=== PATIENT | female | born 1960 | race African-American/Black ===

== ENCOUNTER 2019-04-17 06:20 | Inpatient (IN) ==
--- NOTE | 2019-04-17 08:08 | Diag Imaging Result Doc PS360 ---
EXAM: KUB ABDOMEN HISTORY: sbo TECHNIQUE: Single view COMPARISON: 05/10/2017 FINDINGS: There are surgical clips in the right upper quadrant. Large screw in the pelvis. These are unchanged. There are air distended loops of small bowel in the left abdomen. No organomegaly. IMPRESSION: Ileus or partial obstruction Electronically signed by Praneeth Palmer 04/17/2019 8:06 AM
[2019-04-17] MEDS: NS 1,000 ML IV SCH ×3 (08:33→21:34)
[2019-04-17] MEDS: ZOFRAN IV PRN ×3 (08:33→22:21)
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
[2019-04-17 09:17] LABS: BASO# 0.02 X1000 (0.0-0.2); BASO% 0.2 % (0.0-0.8); EOS# 0.02 X1000 (0.0-0.7); EOS% 0.2 % (0.0-10.0); HEMATOCRIT 38.4 % (37.0-47.0); HEMOGLOBIN 12.5 g/dL (12.0-16.0); LYMPH# 1.61 X1000 (1.2-3.4); LYMPH% 19.5 % (20.5-51.1); MCH 31.1 PG (27-31); MCHC 32.6 g/dL (33-37); MCV 95.5 FL (81-99); MONO# 0.35 X1000 (0.11-0.59); MONO% 4.2 % (1.7-9.3); MPV 9.9 FL (7.4-10.4); NEUT# 6.25 X1000 (1.4-6.5); NEUT% 75.9 % (42.2-75.2); PLT 215 X1000 (130-400); RBC 4.02 XMIL (4.2-5.4); RDW 15.3 % (11.5-14.5); WBC 8.25 X1000 (4.8-10.8)
[2019-04-17 09:38] LABS: INR 1.63; PROTIME 19.7 Seconds (11.0-16.0)
[2019-04-17 09:39] LABS: PTT 33.3 Seconds (22.3-41.8)
[2019-04-17 10:00] LABS: FREE T4 1.18 ng/dL (0.93-1.70); TSH 0.34 uIUmL (0.27-4.20)
[2019-04-17 10:06] LABS: AGAP 6; ALBUMIN 3.5 g/dL (3.5-5.0); ALKALINE PHOSPHATASE 88 U/L (32-104); BUN 11 mg/dL (8-22); CALCIUM 9.1 mg/dL (8.8-10.2); CHLORIDE 103 mmol/L (98-107); COSMO 281; CREATININE 0.9 mg/dL (0.5-0.9); ESTIMATED GFR > 60; GLUCOSE 100 mg/dL (70-104); GOT 15 U/L (10-30); GPT 6 U/L (10-36); MAGNESIUM 1.8 mg/dL (1.5-2.7); POTASSIUM 4.2 mmol/L (3.5-5.1); SODIUM 141 mmol/L (136-145); TCO2 32 mmol/L (25-35); TOTAL BILIRUBIN 0.57 mg/dL (0.20-1.00); TOTAL PROTEIN 6.9 g/dL (6.3-8.3)
[2019-04-17] MEDS: MORPHINE IV PRN ×4 (10:56→21:34)
[2019-04-17] MEDS: LOVENOX SUBQ SCH ×2 (10:56→21:34)
--- NOTE | 2019-04-17 11:55 | GENERAL SURGERY CONSULTATION ---
DATE: 04/17/2019 SURGEON CONSULTED: Dr. Felix Turpin. REQUESTING PHYSICIAN: Dr. Marks. REASON FOR CONSULTATION: Small-bowel obstruction. HISTORY OF PRESENT ILLNESS: This is a 59-year-old female who presented to the [facility] last night with acute onset of severe shooting [id number] abdominal pain that began last night at 10:30. It was associated with several episodes of nausea and vomiting. It was rated 10/10 at its worst. It was worsened with movement or laughing, but has been lessened some with pain medicine in the hospital. It is now a 6/10. She also reported subjective fever. Her last bowel movement was yesterday and was normal. She has not been struggling with constipation or diarrhea recently. She has had no prior episodes like this. PAST MEDICAL HISTORY: 1. Ischemic colitis requiring left colectomy with colostomy in 2017. 2. History of stroke without any residual neurologic deficits. 3. Coronary artery disease, status post triple-vessel coronary bypass, I believe in 2014 or 2013. 4. Anxiety. 5. Depression. 6. Hypertension. 7. COPD. 8. Nicotine dependence. 9. Chronic left hip pain. 10. Right calf DVT diagnosed last year. PAST SURGICAL HISTORY: Triple-vessel bypass surgery, cholecystectomy, left hemicolectomy with colostomy, colostomy takedown, hysterectomy. FAMILY HISTORY: Coronary artery disease. SOCIAL HISTORY: She smokes a half a pack per day. No illicit drug use or alcohol use. ALLERGIES: No known drug allergies. HOME MEDICATIONS: Lyrica, Klonopin, Ambien, [place], Xarelto, Lopressor. REVIEW OF SYSTEMS: Ten systems were reviewed and negative, except as noted above. PHYSICAL EXAMINATION: Vital Signs: Temperature 99.2 degrees, pulse 62, respirations 19, blood pressure 172/79, O2 saturation 99%. General: Well-developed, well-nourished female in no distress, who looks her stated age. HEENT: Normocephalic, atraumatic. Extraocular muscles intact. Pupils equal, round, reactive to light. Sclerae anicteric. Moist mucous membranes. Hearing grossly normal. No oral lesions. Neck: Supple. No thyromegaly. CV: Regular rate and rhythm. Respiratory: Bilateral equal breath sounds. No work of breathing. Gastrointestinal: Soft, nondistended. No organomegaly or mass. She is moderately tender in the mid abdomen without rebound or guarding. She does have a periumbilical midline small hernia that is reduced. Well- healed midline incision. Extremities: No clubbing, cyanosis, or edema. Musculoskeletal: Moves all extremities equally and well. LABORATORY DATA: White blood cell count 8, hemoglobin 12, hematocrit 38, platelet count 215,000. INR 1.6. Complete metabolic profile reviewed and unremarkable. IMAGING: Abdominal x-ray this morning shows air distended loops of small bowel in the left abdomen. No free air. She apparently had a CT scan done at [facility], but I do not have those results at the moment. ASSESSMENT AND PLAN: A 59-year-old female with abdominal pain, nausea, and vomiting, likely due to partial-small bowel obstruction. She does not appear to need a nasogastric tube at this time. We will keep her nothing by mouth, except for medicine. Administer intravenous fluids for hydration, and get a small-bowel follow-through x-ray series today. cc: Felix Turpin MD
[2019-04-17 18:10] LABS: URINE SOURCE CLEAN CATCH
[2019-04-17 18:17] LABS: BILIRUBIN URINE NEGATIVE (NEGATIVE); BLOOD URINE NEGATIVE (NEGATIVE); COLOR YELLOW; GLUCOSE URINE NEGATIVE (NEGATIVE); KETONE URINE 10 mg/dL (NEGATIVE); LEUKOCYTES URINE NEGATIVE (NEGATIVE); NITRITE URINE NEGATIVE (NEGATIVE); PROTEIN URINE TRACE mg/dL (NEGATIVE); SP GRAVITY URINE 1.019; TURBIDITY URINE CLEAR (CLEAR); UROBILINOGEN URINE NORMAL (NORMAL)
[2019-04-17 18:18] LABS: UR EPITHELIAL CELLS <10 /HPF (<10); URINE BACTERIA NEGATIVE /HPF; URINE RBC <10 /HPF (<10); URINE WBC <10 /HPF (<10)
--- NOTE | 2019-04-17 20:16 | Diag Imaging Result Doc PS360 ---
EXAM: SMALL BOWEL SERIES ONLY 04/17/2019 HISTORY: partial sbo TECHNIQUE: Small bowel study COMMENT: There is some gas in the colon demonstrated particularly on the right side. There is delayed intestinal transit time and dilatation of the proximal small bowel. The small bowel mucosal folds do not appear to be thickened. There is still no barium in the colon by 8 1/2 hours. Additional delayed images should be obtained. IMPRESSION: Study is incomplete at 8 1/2 hours. Electronically signed by Blake Forde 04/17/2019 8:13 PM
[2019-04-18] MEDS: MORPHINE IV PRN ×8 (00:54→22:58)
[2019-04-18 07:29] LABS: BASO# 0.02 X1000 (0.0-0.2); BASO% 0.2 % (0.0-0.8); EOS# 0.05 X1000 (0.0-0.7); EOS% 0.6 % (0.0-10.0); HEMATOCRIT 39.1 % (37.0-47.0); HEMOGLOBIN 12.6 g/dL (12.0-16.0); LYMPH# 1.86 X1000 (1.2-3.4); LYMPH% 22.2 % (20.5-51.1); MCH 30.9 PG (27-31); MCHC 32.2 g/dL (33-37); MCV 95.8 FL (81-99); MONO# 0.65 X1000 (0.11-0.59); MONO% 7.8 % (1.7-9.3); MPV 10.3 FL (7.4-10.4); NEUT# 5.78 X1000 (1.4-6.5); NEUT% 69.2 % (42.2-75.2); PLT 214 X1000 (130-400); RBC 4.08 XMIL (4.2-5.4); WBC 8.36 X1000 (4.8-10.8)
[2019-04-18 08:26] LABS: AGAP 19; ALB/GLOB RATIO 1.1; ALBUMIN 3.5 g/dL (3.5-5.0); ALKALINE PHOSPHATASE 84 U/L (32-104); BUN 18 mg/dL (8-22); CALCIUM 9.2 mg/dL (8.8-10.2); CHLORIDE 102 mmol/L (98-107); COSMO 277; CREATININE 0.9 mg/dL (0.5-0.9); ESTIMATED GFR > 60; GLUCOSE 56 mg/dL (70-104); GOT 15 U/L (10-30); GPT 5 U/L (10-36); POTASSIUM 3.7 mmol/L (3.5-5.1); SODIUM 139 mmol/L (136-145); TCO2 18 mmol/L (25-35); TOTAL BILIRUBIN 0.74 mg/dL (0.20-1.00); TOTAL PROTEIN 6.8 g/dL (6.3-8.3)
[2019-04-18] MEDS: NS 1,000 ML IV SCH ×3 (09:31→15:36)
--- NOTE | 2019-04-18 10:08 | Diag Imaging Result Doc PS360 ---
EXAM: CHEST-PORTABLE 04/18/2019 HISTORY: confirm NG tube TECHNIQUE: AP portable upright at 0950 COMMENT: There is an NG tube with its tip in the fundus of the stomach. IMPRESSION: NG tube in the stomach. Electronically signed by Blake Forde 04/18/2019 10:06 AM
[2019-04-18] MEDS: LOVENOX SUBQ SCH (11:24)
--- NOTE | 2019-04-18 13:00 | Diag Imaging Result Doc PS360 ---
EXAM: ABDOMEN FLAT/UPRIGHT 04/18/2019 HISTORY: sbo follow up TECHNIQUE: Flat and upright abdomen COMMENT: There is an NG tube in the stomach. There is retained barium which has undergone some degree of flocculation throughout the proximal small bowel which is markedly distended. The degree of dilatation has worsened since the previous examination at 0837. There is still no significant progression of the barium column. IMPRESSION: Small bowel obstruction. Electronically signed by Blake Forde 04/18/2019 12:57 PM
--- NOTE | 2019-04-18 14:11 | GENERAL SURGERY PROGRESS NOTE ---
DATE: 04/18/2019 SUBJECTIVE: The patient complains of ongoing upper abdominal pain with some episodes of nausea and vomiting. She denies flatus or bowel movement. OBJECTIVE: She is afebrile. Vital signs are stable.General: She is awake, alert, oriented x3. No acute distress. CV: Regular rate and rhythm. Respiratory: Bilateral equal breath sounds. No work of breathing. Gastrointestinal: Soft, nondistended, no organomegaly. No mass. She does have a periumbilical midline hernia, but it remains reduced. She remains tender in the mid upper abdomen but without rebound or guarding. LABORATORY: CBC reviewed and unremarkable. Metabolic profile is pending. IMAGING: Her small bowel follow-through images were reviewed. They do show slow transit through the small bowel after 8 hours without entry into the colon. There is dilated proximal small bowel. ASSESSMENT AND PLAN: A 59-year-old female with ongoing abdominal pain, nausea, vomiting, and imaging suggesting small bowel obstruction. We will order an NG tube to low wall suction today and repeat some imaging. If she fails to improve over the next 24 hours, we will proceed to the operating room for exploratory laparotomy. cc: Felix Turpin MD
[2019-04-18] MEDS ORDERED: DIPRIVAN 1% ONE (15:19)
[2019-04-18] MEDS ORDERED: XYLOCAINE-MPF 2% ONE (15:19)
[2019-04-18] MEDS ORDERED: NORCURON ONE (15:21)
[2019-04-18] MEDS ORDERED: STERILE WATER INJ. ONE (15:21)
[2019-04-18] MEDS ORDERED: VERSED ONE (15:21)
[2019-04-18] MEDS ORDERED: KEFZOL 1 GM/D5W 1 GM/50 ML IVPB IV ONE (15:30)
[2019-04-18] MEDS ORDERED: EXPAREL 1.3% ONE (15:32)
[2019-04-18] MEDS ORDERED: MARCAINE 0.25% PF ONE (15:32)
[2019-04-18] MEDS ORDERED: KEFZOL 1 GM/D5W 1 GM/50 ML IVPB ONE (15:46)
[2019-04-18] MEDS ORDERED: FENTANYL ONE (16:18)
[2019-04-18] MEDS ORDERED: APRESOLINE ONE (16:27)
[2019-04-18] MEDS ORDERED: ZOFRAN ONE (16:41)
[2019-04-18] MEDS ORDERED: DECADRON ONE (16:41)
[2019-04-18] MEDS ORDERED: BENADRYL ONE (17:02)
[2019-04-18] MEDS ORDERED: ROBINUL ONE ×2 (17:02→17:03)
[2019-04-18] MEDS ORDERED: OFIRMEV 1000 MG/ISOTONIC SOLN 1,000 MG/100 ML BOTTLE ONE (17:03)
[2019-04-18] MEDS ORDERED: NEOSTIGMINE ONE (17:04)
[2019-04-18] MEDS ORDERED: NS 1,000 ML ONE (17:30)
[2019-04-18] MEDS: DILAUDID ONE ×2 (17:36→17:39)
[2019-04-18 17:52] LABS: URINE SOURCE CATH
[2019-04-18 17:55] LABS: BILIRUBIN URINE NEGATIVE (NEGATIVE); BLOOD URINE NEGATIVE (NEGATIVE); COLOR YELLOW; GLUCOSE URINE NEGATIVE (NEGATIVE); KETONE URINE 40 mg/dL (NEGATIVE); LEUKOCYTES URINE NEGATIVE (NEGATIVE); NITRITE URINE NEGATIVE (NEGATIVE); PH URINE 6.5; PROTEIN URINE TRACE mg/dL (NEGATIVE); SP GRAVITY URINE 1.015; TURBIDITY URINE CLEAR (CLEAR); UROBILINOGEN URINE NORMAL (NORMAL)
[2019-04-18 17:57] LABS: UR EPITHELIAL CELLS <10 /HPF (<10); URINE BACTERIA NEGATIVE /HPF; URINE RBC <10 /HPF (<10); URINE WBC <10 /HPF (<10)
[2019-04-18] MEDS: ZOFRAN IV PRN (19:09)
[2019-04-18] MEDS: VENTOLIN HFA INH PRN (20:07)
[2019-04-18] MEDS: PERIDEX MT SCH (20:40)
[2019-04-18] MEDS: PROTONIX IV SCH (20:40)
[2019-04-18] MEDS: SODIUM CHLORIDE 0.9% INJ SCH (20:40)
[2019-04-18] MEDS ORDERED: PERIDEX MT SCH (21:00)
--- NOTE | 2019-04-18 22:29 | GENERAL SURGERY PROGRESS NOTE ---
DATE: 04/18/2019 SUBJECTIVE: The patient has not had much improvement today. She still has not passed gas or had a bowel movement. OBJECTIVE: She is afebrile. Vital signs are stable.General: She is awake, alert, oriented x3. No acute distress. Gastrointestinal: Soft, tender as before. IMAGING: Her x-ray today shows no progression of contrast to the colon and increasing small bowel distention. ASSESSMENT AND PLAN: A 59-year-old female with small-bowel obstruction. It is not resolving despite conservative measures. We are planning exploratory laparotomy this evening. I discussed the risks and benefits with her including bleeding, infection, incisional hernia, injury to the bowel, possible need for resection, and other imponderables. She understands and agrees to proceed. cc: Felix Turpin MD
--- NOTE | 2019-04-18 22:32 | PROGRESS NOTE ---
DATE: 04/18/2019 SUBJECTIVE: The patient seen postop. She has an NG in place. OBJECTIVE: Vital Signs: Blood pressure 130/77, heart rate 99, respiratory rate 16, temperature 97.8 degrees, 94% on room air. Cardiovascular: Regular rate and rhythm. Pulmonary: Bilateral breath sounds, clear to auscultation. Abdomen: Soft, nontender, nondistended. Bowel sounds are positive. Extremity: No clubbing or cyanosis. Lymphatic exam: No peripheral edema. Neurological: Nonfocal. LABORATORY DATA: White count 8, hemoglobin and hematocrit 12 and 39, platelets 214,000. Basic was normal. PROBLEM LIST: Small-bowel obstruction, but I think she is status post lysis of adhesions and exploratory laparotomy. I do not have her operative report yet. We will continue NPO and hydration and follow closely. Monitor her labs. She is on anticoagulation, but I do not know why. She has had CAD, CVA. She is on Xarelto. I suspect this is for atrial fibrillation, but I am not entirely sure. Her last admission with discharge, she had ischemic colitis. Maybe they were anticoagulating her there. Will at least put her on Lovenox until we can sort out why she is being anticoagulated, but I suspect it is probably for atrial fibrillation. Her regular doctors will have to sort that out a bit. cc: Noah Henry MD
[2019-04-19] MEDS: MORPHINE IV PRN ×11 (01:18→22:32)
[2019-04-19] MEDS: NS 1,000 ML IV SCH ×4 (03:26→17:54)
--- NOTE | 2019-04-19 04:14 | OPERATIVE NOTE ---
PROCEDURE DATE: 04/18/2019 PREOPERATIVE DIAGNOSIS: Small-bowel obstruction. POSTOPERATIVE DIAGNOSIS: Small-bowel obstruction. PROCEDURE: Exploratory laparotomy with lysis of adhesions. SURGEON: Felix Turpin MD. ANESTHESIA: General. ESTIMATED BLOOD LOSS: 50 mL. COMPLICATIONS: None apparent. SPECIMENS: None. FINDINGS: Extensive adhesions of the small-bowel causing obstruction. OPERATIVE NOTE: The patient was brought to the operating room and placed supine on the table. General anesthesia was induced. She was prepped and draped in usual sterile fashion. A midline incision was made with a knife and carried down through the subcutaneous fat sharply to the fascia. The fascia was then opened sharply and we entered the peritoneal cavity safely, extended the peritoneal and fascial incision with cautery, also using Metzenbaum scissors to lyse adhesions of small-bowel to the anterior abdominal wall. I then proceeded to find the ileocecal valve and, working from distal to proximal, I began mobilizing the small-bowel. There were extensive adhesions between bowel loops as well as to the lateral abdominal sidewall and the pelvis. Carefully, all the adhesions were lysed. There was an obvious transition point in the mid small- bowel that was resolved after adhesiolysis. Along the way, there were there were 2 small serosal tears, but not full thickness tears. These were repaired with 3-0 silk seromuscular suture. When I got to the ligament of Treitz, I then ran the bowel back from proximal to distal. There were no further obstructing lesions. The bowel appeared to be intact. The NG tube was felt to be in the stomach. We milked some of the fluid in the small-bowel back up in to the stomach. I then returned the bowel to its anatomic position and closed the peritoneum with a running #1 Vicryl and the fascia with a running #1 looped Maxon suture. The skin was closed with skin clips. There were no apparent complications. cc: Felix Turpin MD
[2019-04-19] MEDS: LOVENOX SUBQ SCH (05:45)
[2019-04-19 07:06] LABS: BASO# 0.01 X1000 (0.0-0.2); BASO% 0.1 % (0.0-0.8); HEMATOCRIT 35.2 % (37.0-47.0); HEMOGLOBIN 11.3 g/dL (12.0-16.0); IMM GRAN# 0.02 X1000 (0.0-0.04); IMM GRAN% 0.2 % (0.0-0.5); LYMPH# 1.35 X1000 (1.2-3.4); LYMPH% 12.9 % (20.5-51.1); MCH 30.3 PG (27-31); MCHC 32.1 g/dL (33-37); MCV 94.4 FL (81-99); MONO# 0.95 X1000 (0.11-0.59); MONO% 9.1 % (1.7-9.3); NEUT# 8.12 X1000 (1.4-6.5); NEUT% 77.7 % (42.2-75.2); PLT 202 X1000 (130-400); RBC 3.73 XMIL (4.2-5.4); RDW 14.8 % (11.5-14.5); WBC 10.45 X1000 (4.8-10.8)
[2019-04-19] MEDS: PERIDEX MT SCH ×3 (07:41→20:04)
[2019-04-19 07:42] LABS: AGAP 12; BUN 17 mg/dL (8-22); CHLORIDE 104 mmol/L (98-107); COSMO 272; CREATININE 0.7 mg/dL (0.5-0.9); ESTIMATED GFR > 60; GLUCOSE 96 mg/dL (70-104); MAGNESIUM 1.5 mg/dL (1.5-2.7); POTASSIUM 3.9 mmol/L (3.5-5.1); SODIUM 135 mmol/L (136-145); TCO2 19 mmol/L (25-35)
[2019-04-19] MEDS: VENTOLIN HFA INH PRN ×2 (08:55→19:32)
[2019-04-19] MEDS: ZOFRAN IV PRN (16:22)
--- NOTE | 2019-04-19 19:04 | PROGRESS NOTE ---
DATE: 04/19/2019 SUBJECTIVE: The patient has no major complaints. She still has her NG in place. She is still fairly uncomfortable from her recent exploratory laparotomy. OBJECTIVE: Blood pressure is 160/79, heart rate of 92, respiratory rate of 19, temperature 98.3 degrees, 100% on room air.Cardiovascular: Regular rate and rhythm. Pulmonary: Bilateral breath sounds, clear to auscultation. GI was soft, nontender, nondistended. Bowel sounds were not positive. LABORATORY DATA: White count 10, hemoglobin and hematocrit 11 and 35, platelets of 202,000. Basic was normal. ASSESSMENT AND PLAN: 1. Small-bowel obstruction. We will continue to follow. She is status post lysis of adhesions. She is NPO. We are going to continue intravenous fluids and follow. 2. She is on deep venous thrombosis prophylaxis, proton pump inhibitor, and we will continue to monitor. Appreciate this with Dr. Turpin in following. cc: Noah Henry MD
--- NOTE | 2019-04-19 19:19 | GENERAL SURGERY PROGRESS NOTE ---
DATE: 04/19/2019 SUBJECTIVE: The patient is doing okay overnight. No acute events. OBJECTIVE: Vital signs: T-max 99.8 degrees, pulse 93, respirations 19, blood pressure 148/85, O2 saturation 94%. Urine output 1375 yesterday. NG tube output 300. General: She is awake and alert in no acute distress. Gastrointestinal: Soft, nondistended hypoactive bowel sounds. Incisional dressing was clean and dry. LABORATORY DATA: White blood cell count 10, hemoglobin 11.3, hematocrit 35. Electrolytes reviewed and unremarkable. ASSESSMENT AND PLAN: A 59-year-old female postoperative day 1 from extensive lysis of adhesions for small bowel obstruction. We are awaiting return of bowel function. She will remain n.p.o. with the NG tube for now. We will start mobilizing her to the side of the bed or the chair as tolerated. cc: Felix Turpin MD
[2019-04-19] MEDS: PROTONIX IV SCH (20:04)
[2019-04-19] MEDS: SODIUM CHLORIDE 0.9% INJ SCH (20:04)
[2019-04-20] MEDS: MORPHINE IV PRN ×10 (00:39→21:37)
[2019-04-20] MEDS: NS 1,000 ML IV SCH (00:39)
[2019-04-20] MEDS: LOVENOX SUBQ SCH (05:50)
[2019-04-20 06:51] LABS: BASO# 0.01 X1000 (0.0-0.2); BASO% 0.1 % (0.0-0.8); EOS# 0.06 X1000 (0.0-0.7); EOS% 0.6 % (0.0-10.0); HEMATOCRIT 32.1 % (37.0-47.0); HEMOGLOBIN 10.4 g/dL (12.0-16.0); LYMPH# 1.04 X1000 (1.2-3.4); LYMPH% 10.5 % (20.5-51.1); MCH 30.7 PG (27-31); MCHC 32.4 g/dL (33-37); MCV 94.7 FL (81-99); MONO# 0.94 X1000 (0.11-0.59); MONO% 9.5 % (1.7-9.3); MPV 9.8 FL (7.4-10.4); NEUT# 7.83 X1000 (1.4-6.5); NEUT% 79.3 % (42.2-75.2); PLT 187 X1000 (130-400); RBC 3.39 XMIL (4.2-5.4); RDW 14.7 % (11.5-14.5); WBC 9.88 X1000 (4.8-10.8)
[2019-04-20 07:14] LABS: AGAP 17; BUN 11 mg/dL (8-22); CALCIUM 8.1 mg/dL (8.8-10.2); CHLORIDE 100 mmol/L (98-107); COSMO 264; CREATININE 0.8 mg/dL (0.5-0.9); ESTIMATED GFR > 60; GLUCOSE 60 mg/dL (70-104); MAGNESIUM 1.7 mg/dL (1.5-2.7); POTASSIUM 3.7 mmol/L (3.5-5.1); SODIUM 133 mmol/L (136-145); TCO2 16 mmol/L (25-35)
[2019-04-20] MEDS ORDERED: BLISTEX MEDICATED BERRY LIP BALM TOP PRN (07:25)
[2019-04-20] MEDS: PERIDEX MT SCH ×3 (07:52→21:05)
--- NOTE | 2019-04-20 07:58 | Diag Imaging Result Doc PS360 ---
EXAM: CHEST-PORTABLE HISTORY: fever post op TECHNIQUE: Single view COMPARISON: 04/18/2019 FINDINGS: Nasogastric tube is unchanged. The heart is mildly prominent. Sternal wires are present. There are small pleural effusions with basilar atelectasis. The could be underlying infiltrates as well. IMPRESSION: Interval worsening Electronically signed by Praneeth Palmer 04/20/2019 7:55 AM
[2019-04-20] MEDS: VENTOLIN HFA INH PRN (08:25)
[2019-04-20] MEDS: D5 1/2 NS + KCL 20 MEQ 1,000 ML IV SCH ×2 (12:18→22:55)
--- NOTE | 2019-04-20 14:36 | GENERAL SURGERY PROGRESS NOTE ---
DATE: 04/20/2019 SUBJECTIVE: The patient is feeling better. She is not having severe pain. She has soreness. She denies chest pain. She did report some mild shortness of breath. No nausea or vomiting, no flatus yet. OBJECTIVE: Vital Signs: T-max 101.1 degrees. Current temperature 98.5 degrees. Pulse 84, respirations 17, blood pressure 155/80, O2 saturation 93%. NG tube output only 200 mL. Urine output 1500 mL. General: She is awake, alert, and oriented x3. No acute distress. Respiratory: Shallow, mildly tachypneic breathing. No severe rales or wheezing. No respiratory distress. CV: Regular rate and rhythm. Gastrointestinal: Soft, nondistended. Appropriately tender. Incisional dressing is clean and dry. She does have bowel sounds. LABORATORY: CBC and metabolic profile reviewed and unremarkable. IMAGING: Chest x-ray today does show some basilar atelectasis and small effusions. ASSESSMENT AND PLAN: A 59-year-old female status post extensive lysis of adhesions for small bowel obstruction. She may be developing some significant atelectasis and effusion. We will discontinue the nasogastric tube and the Hayes catheter. We will plan to get her up out of bed and ambulating and working with her incentive spirometer. I will also give her a dose of Lasix. We will keep her nothing by mouth, except for ice chips and sips of water for right now. cc: Felix Turpin MD
--- NOTE | 2019-04-20 17:01 | Diag Imaging Result Doc PS360 ---
EXAM: CT THORAX W/CONTRAST INDICATION: pna, pleural effusion TECHNIQUE: This exam was performed using automated exposure control, adjustment of mA or kV according to patient size, and/or use of iterative reconstruction technique. COMPARISON: 04/24/2017 FINDINGS: There are a few small blebs at the lung apices. There are airspace consolidations involving both lower lobes indicating pneumonia but there is also a significant component of atelectasis. Consider aspiration. There are small effusions at both lung bases. There is no pneumothorax. There is stable cardiomegaly. There are shotty mediastinal lymph nodes that are probably reactive. There are CABG changes. Limited views of the upper abdomen reveals several simple hepatic cysts as well as biliary dilatation that can also be seen on the previous study. IMPRESSION: 1.Bilateral lower lobe consolidation suggesting pneumonia with a significant component of atelectasis. Consider aspiration pneumonia. 2.Very small bilateral effusions. 3.Incidental biliary dilatation that is similar to the previous study. 4.Other incidental/nonacute findings detailed above. Electronically signed by Newton Juan 04/20/2019 4:59 PM
--- NOTE | 2019-04-20 20:30 | PROGRESS NOTE ---
DATE: 04/20/2019 SUBJECTIVE: Patient reports feeling fine. NG tube has been removed. Mild abdominal pain most likely related to her recent exploratory laparotomy, but no other complaints noted. OBJECTIVE: Vital Signs: Temperature 97.3 degrees, heart rate 86, respiratory rate 17, blood pressure 163/89, O2 saturation 93% on room air. General: This is a 59-year-old, -[place]is[place] female, lying in bed in no acute distress. Cardiovascular: S1, S2 heard. No murmurs, gallops, or rubs. Regular rate and rhythm. Respiratory: Clear bilaterally to auscultation. No work of breathing or using accessory muscles. Abdomen: Soft, nontender to palpation, nondistended. Surgical incision dry and clean. Bowel sounds present. No organomegaly. Extremities: No clubbing, cyanosis, or edema. Peripheral pulses present in both legs. Neurological: Patient alert and oriented x3. Moves 4 extremities. LABORATORY DATA: Reviewed. ASSESSMENT AND PLAN: 1. Small bowel obstruction, status post extensive lysis of adhesions. General Surgery is following this patient. Nasogastric tube has been removed. She is not feeling nauseated. The patient requests some clear liquids. Currently, on ice chips and sips of water. At this point, we will leave the decision to change diet to General Surgery. 2. Bilateral lower lobe pneumonia, most likely related to aspiration. At this time, we are going to start broad-spectrum antibiotics with vancomycin and Zosyn, and we will continue to check CBC daily. 3. Disposition. We will continue to monitor this patient closely. cc: Rajiv Hall MD
[2019-04-20] MEDS: PROTONIX IV SCH (21:05)
[2019-04-21] MEDS: MORPHINE IV PRN ×8 (02:01→22:32)
[2019-04-21] MEDS: LOVENOX SUBQ SCH (05:40)
[2019-04-21 07:53] LABS: EOS# 0.16 X1000 (0.0-0.7); EOS% 2.3 % (0.0-10.0); HEMATOCRIT 30.7 % (37.0-47.0); HEMOGLOBIN 10.1 g/dL (12.0-16.0); LYMPH# 0.67 X1000 (1.2-3.4); LYMPH% 9.8 % (20.5-51.1); MCH 30.7 PG (27-31); MCHC 32.9 g/dL (33-37); MCV 93.3 FL (81-99); MONO# 0.71 X1000 (0.11-0.59); MONO% 10.4 % (1.7-9.3); MPV 10.1 FL (7.4-10.4); NEUT# 5.27 X1000 (1.4-6.5); NEUT% 77.5 % (42.2-75.2); PLT 186 X1000 (130-400); RBC 3.29 XMIL (4.2-5.4); RDW 14.2 % (11.5-14.5); WBC 6.81 X1000 (4.8-10.8)
[2019-04-21 08:20] LABS: AGAP 12; ALBUMIN 2.7 g/dL (3.5-5.0); BUN 7 mg/dL (8-22); CALCIUM 8.4 mg/dL (8.8-10.2); CHLORIDE 104 mmol/L (98-107); COSMO 272; CREATININE 0.7 mg/dL (0.5-0.9); ESTIMATED GFR > 60; GLUCOSE 133 mg/dL (70-104); POTASSIUM 3.8 mmol/L (3.5-5.1); SODIUM 136 mmol/L (136-145); TCO2 20 mmol/L (25-35)
[2019-04-21] MEDS: VENTOLIN HFA INH PRN (09:00)
--- NOTE | 2019-04-21 10:20 | Diag Imaging Result Doc PS360 ---
EXAM: ABDOMEN FLAT/UPRIGHT 04/21/2019 HISTORY: sbo s/p lysis of adhesions TECHNIQUE: Flat and upright abdomen COMMENT: There is contrast present in the distal small bowel and apparently in the cecum. The dilatation of the small bowel loops more proximally which was demonstrated on 04/18/2019 has apparently resolved. There are surgical skin clips in the midline. There is gas in the ascending colon. IMPRESSION: Resolution of small bowel obstruction. Electronically signed by Blake Forde 04/21/2019 10:17 AM
[2019-04-21] MEDS: PERIDEX MT SCH ×2 (11:24→20:25)
[2019-04-21] MEDS ORDERED: SODIUM PHOSPHATE 35 MMOL in NS 250 ML IV ONE (12:31)
[2019-04-21] MEDS: D5 1/2 NS + KCL 20 MEQ 1,000 ML IV SCH (14:08)
--- NOTE | 2019-04-21 19:01 | PROGRESS NOTE ---
DATE: 04/21/2019 SUBJECTIVE: Patient reports feeling fine. No abdominal pain. No nausea or vomiting. OBJECTIVE: Vital Signs: Temperature 98.4 degrees, heart rate 76, respiratory 16, blood pressure 137/77, O2 saturation 94% on room air. General: This is a 59-year-old, -Stateless female, lying in bed in no acute distress. Cardiovascular: S1, S2 heard. No murmurs, gallops, or rubs. Regular rate and rhythm. Respiratory: Clear bilaterally to auscultation. No work of breathing or using accessory muscles. Abdomen: Soft, nontender to palpation, nondistended. Surgical incision dry and clean. Bowel sounds present. No organomegaly. Extremities: No clubbing, cyanosis, or edema. Peripheral pulses present in both legs. Neurological: Alert and oriented x3. Moves 4 extremities. LABORATORY DATA: Reviewed. ASSESSMENT AND PLAN: 1. Small bowel obstruction, status post extensive lysis of adhesions. The x-ray from this morning showed resolution with this small bowel obstruction. The patient is not feeling nauseated anymore or having any abdominal pain. As per General Surgery's recommendations, we will start a clear liquid diet. We will continue to monitor this patient closely. 2. Bilateral lower lobe pneumonia, most likely related to aspiration. Patient has been started on vancomycin and Zosyn. Clinically, this patient is still having some cough. I think at this point, we will keep this patient over the weekend. We have consulted Physical Therapy and Occupational Therapy as well. I think if she continues to be fine, not requiring any oxygen supplementation, white cell count normal, and not spiking any fever, I think this patient can be discharged on Wednesday. 3. Disposition. We will continue to monitor this patient. cc: Rajiv Hall MD
[2019-04-21] MEDS: PROTONIX IV SCH (20:24)
[2019-04-21] MEDS: SODIUM CHLORIDE 0.9% INJ SCH (20:24)
--- NOTE | 2019-04-21 21:47 | GENERAL SURGERY PROGRESS NOTE ---
DATE: 04/21/2019 SUBJECTIVE: The patient complains of soreness. She denies nausea or vomiting. She did get out of bed yesterday. She has not passed flatus yet. OBJECTIVE: She is afebrile. Vital signs are stable.General: She is awake, alert, and oriented x3. No acute distress. Cardiovascular: Regular rate and rhythm. Respiratory: Bilateral breath sounds. No increased work of breathing. Gastrointestinal: Soft, nondistended, appropriately tender. Incisional dressing is clean and dry. She does have a few bowel sounds. IMAGING: Her abdominal x-ray today, shows resolution of small bowel obstruction. LABORATORY: CBC and metabolic profile reviewed and unremarkable. ASSESSMENT AND PLAN: A 59-year-old female status post extensive lysis of adhesions for small bowel obstruction. She is improving. She definitely has some atelectasis, possibly pneumonia. She is being covered with broad-spectrum antibiotics for the time being. We are encouraging ambulation and incentive spirometry. I will start her on a clear liquid diet, but will hold off advancing until she is definitely passing flatus. cc: Felix Turpin MD
[2019-04-22] MEDS: MORPHINE IV PRN ×8 (00:24→20:22)
[2019-04-22] MEDS: D5 1/2 NS + KCL 20 MEQ 1,000 ML IV SCH ×2 (01:53→13:35)
[2019-04-22] MEDS: LOVENOX SUBQ SCH (05:42)
[2019-04-22 07:36] LABS: EOS# 0.02 X1000 (0.0-0.7); EOS% 0.7 % (0.0-10.0); HEMATOCRIT 34.1 % (37.0-47.0); HEMOGLOBIN 11.3 g/dL (12.0-16.0); LYMPH# 0.48 X1000 (1.2-3.4); LYMPH% 17.7 % (20.5-51.1); MCH 30.9 PG (27-31); MCHC 33.1 g/dL (33-37); MCV 93.2 FL (81-99); MONO# 0.21 X1000 (0.11-0.59); MONO% 7.7 % (1.7-9.3); MPV 9.9 FL (7.4-10.4); NEUT% 73.9 % (42.2-75.2); PLT 229 X1000 (130-400); RBC 3.66 XMIL (4.2-5.4); RDW 14.2 % (11.5-14.5); WBC 2.71 X1000 (4.8-10.8)
[2019-04-22] MEDS: VENTOLIN HFA INH PRN (08:09)
[2019-04-22 08:22] LABS: AGAP 17; ALBUMIN 2.6 g/dL (3.5-5.0); BUN 6 mg/dL (8-22); CALCIUM 8.2 mg/dL (8.8-10.2); CHLORIDE 101 mmol/L (98-107); COSMO 267; CREATININE 0.7 mg/dL (0.5-0.9); ESTIMATED GFR > 60; GLUCOSE 122 mg/dL (70-104); PHOSPHORUS 2.5 mg/dL (2.7-4.5); POTASSIUM 3.2 mmol/L (3.5-5.1); SODIUM 134 mmol/L (136-145); TCO2 16 mmol/L (25-35)
[2019-04-22] MEDS: PERIDEX MT SCH ×2 (09:53→20:26)
[2019-04-22] MEDS ORDERED: KLOR-CON PO ONE (13:11)
[2019-04-22] MEDS ORDERED: SODIUM PHOSPHATE 35 MMOL in NS 250 ML IV ONE (14:30)
[2019-04-22] MEDS ORDERED: OFIRMEV 1000 MG/ISOTONIC SOLN 1,000 MG/100 ML BOTTLE IV ONE (20:07)
[2019-04-22] MEDS: PROTONIX IV SCH (20:24)
--- NOTE | 2019-04-23 00:11 | PROGRESS NOTE ---
DATE: 04/22/2019 SUBJECTIVE: The patient reports still having diarrhea, 6 this morning. No abdominal pain. She is afraid if she continues to eat she could have more diarrhea. OBJECTIVE: Vital Signs: Temperature 98.6 degrees, heart rate 106 respiratory 17, blood pressure 136/86, O2 saturation is 95% on 2 L nasal cannula. General: This is a 59-year-old female lying in bed in no acute distress. Cardiovascular: S1 and S2 heard. No murmurs, gallops or rubs. Regular rate and rhythm. Respiratory: Clear bilaterally to auscultation. No work of breathing or using of accessory muscles. Abdomen: Soft, a little bit distended. Nontender to palpation. Surgical incision dry and clean. Bowel sounds present. No organomegaly. Extremities: No clubbing, cyanosis, or edema. Peripheral pulses present in both legs. Neurological: The patient is alert and oriented x3. Moves all 4 extremities. LABORATORY DATA: Potassium is 3.2, with a normal renal function, phosphorus 2.5. ASSESSMENT AND PLAN: 1. Small bowel obstruction status post extensive lysis of adhesions. The patient reports feeling fine, x-ray from yesterday showed resolution of the small bowel obstruction. The patient started having diarrhea. We will check C difficile antigen and toxin, and the white cell count on the stool and stool culture considering that she has been on antibiotics. We will see what it shows. General surgery is following this patient. We will follow recommendations. 2. Bilateral lower lobe pneumonia. We will continue with vancomycin and Zosyn. 3. Physical deconditioning. Physical therapy and occupational therapy has been consulted. 4. Electrolyte imbalance. Potassium and phosphorus is low, so we are going to replete both. 5. Disposition. We will continue to monitor this patient closely. cc: Rajiv Hall MD
[2019-04-23] MEDS: D5 1/2 NS + KCL 20 MEQ 1,000 ML IV SCH ×3 (00:22→17:33)
[2019-04-23] MEDS: MORPHINE IV PRN ×6 (00:23→21:31)
[2019-04-23] MEDS ORDERED: TYLENOL PO PRN (02:00)
--- NOTE | 2019-04-23 02:22 | GENERAL SURGERY PROGRESS NOTE ---
DATE: 04/22/2019 SUBJECTIVE: The patient is doing okay. She hurts when she gets up, but she is getting up. She denies vomiting. She is tolerating a clear liquid diet. She has had several bowel movements. OBJECTIVE: Vital Signs: She is afebrile. Vital signs are stable. General: She is awake, alert, oriented x3. No acute distress. GI: Soft, appropriately tender, nondistended. Hypoactive bowel sounds. Incisional dressing is dry. LABORATORY DATA: White cell count 2.7, hemoglobin 34. Electrolytes reviewed and unremarkable. ASSESSMENT AND PLAN: A 59-year-old female status post lysis of adhesions for a small bowel obstruction. She is slowly recovering. I have encouraged more ambulation and incentive spirometry. I will advance her to a full liquid diet and switch her IV fluids to maintenance. cc: Felix Turpin MD
[2019-04-23] MEDS: LOVENOX SUBQ SCH (07:43)
[2019-04-23] MEDS: VENTOLIN HFA INH PRN (07:57)
[2019-04-23 08:17] LABS: EOS# 0.15 X1000 (0.0-0.7); EOS% 4.4 % (0.0-10.0); HEMATOCRIT 34.2 % (37.0-47.0); HEMOGLOBIN 11.5 g/dL (12.0-16.0); LYMPH# 1.11 X1000 (1.2-3.4); LYMPH% 32.3 % (20.5-51.1); MCH 31.3 PG (27-31); MCHC 33.6 g/dL (33-37); MCV 93.2 FL (81-99); MONO# 0.73 X1000 (0.11-0.59); MONO% 21.2 % (1.7-9.3); MPV 10.5 FL (7.4-10.4); NEUT# 1.45 X1000 (1.4-6.5); NEUT% 42.1 % (42.2-75.2); PLT 242 X1000 (130-400); RBC 3.67 XMIL (4.2-5.4); RDW 14.5 % (11.5-14.5); WBC 3.44 X1000 (4.8-10.8)
[2019-04-23] MEDS: PERIDEX MT SCH ×2 (08:42→20:12)
[2019-04-23 08:53] LABS: AGAP 14; BUN 6 mg/dL (8-22); CALCIUM 8.6 mg/dL (8.8-10.2); CHLORIDE 110 mmol/L (98-107); COSMO 280; CREATININE 0.9 mg/dL (0.5-0.9); ESTIMATED GFR > 60; GLUCOSE 94 mg/dL (70-104); PHOSPHORUS 2.9 mg/dL (2.7-4.5); POTASSIUM 4.2 mmol/L (3.5-5.1); SODIUM 142 mmol/L (136-145); TCO2 18 mmol/L (25-35)
[2019-04-23 09:51] LABS: EOS 4 % (1-10); LYMPHS 33 % (21-51); MONO 17 % (1-9); SEGS 45 % (42-75)
[2019-04-23 09:52] LABS: ANISOCYTOSIS 1+; LARGE PLATELETS OCCASIONAL
--- NOTE | 2019-04-23 16:30 | GENERAL SURGERY PROGRESS NOTE ---
DATE: 04/23/2019 SUBJECTIVE: The patient is doing well. She slept well. She is tolerating her liquid diet. She is having bowel movements. OBJECTIVE: Vital signs: She is afebrile. Vital signs are stable. General: She is awake, alert, and oriented x3. No acute distress. GI: Soft, nondistended. Appropriately tender. Incisional dressing is clean and dry. She does have bowel sounds. LABORATORY: None. ASSESSMENT AND PLAN: A 59-year-old female status post exploratory laparotomy with lysis of adhesions for obstruction. She is making progress. We will start her on a soft diet today. cc: Felix Turpin MD
[2019-04-23] MEDS: PROTONIX IV SCH (20:12)
--- NOTE | 2019-04-23 21:48 | PROGRESS NOTE ---
DATE: 04/23/2019 INTERVAL HISTORY: The patient is doing quite well status post exploratory laparotomy with lysis of adhesions for obstruction. Started on soft diet and doing well on that thus far. No new complaints. No acute events overnight. REVIEW OF SYSTEMS: Twelve point review of systems negative except as per interval history. LABS: WBC 3.4, hemoglobin 11.5, hematocrit 34.2, platelets 242,000. Sodium 142, potassium 4.2, bicarb 18, BUN 6, creatinine 0.9, glucose 94, phosphorus 2.9, calcium 8.6, albumin 3. VITALS: T-max yesterday 101.1, but afebrile today with T-max 98.6 degrees, pulse 72, respirations 16, blood pressure 128/80, O2 saturation 100% on room air. PHYSICAL EXAMINATION: General: No acute distress. Vitals: As above. HEENT: Normocephalic, atraumatic. Moist mucous membranes. No cervical adenopathy. Cardiovascular: Regular rate and rhythm. No murmurs noted. Pulmonary: Clear to auscultation bilaterally. No wheezing, rales, or rhonchi. Abdomen: Soft. Bowel sounds present. Incisions clean, dry, intact. Extremities: Peripheral pulses intact. No clubbing, cyanosis. Neurologic: Cranial nerves grossly intact. No focal deficits identified. Psychiatric: Normal mood and affect. Awake, alert, oriented x3. Skin: No new rashes or lesions. Surgical incisions look good as above. ASSESSMENT AND PLAN: 1. Small-bowel obstruction status post lysis of adhesions. Patient doing quite well. Advanced to soft diet today. Doing well with that thus far. Diarrhea improving. Clostridium difficile negative. Continue to monitor. If she continues to improve then may be able to discharge in the next 24 to 48 hours. General Surgery following. We will see if they have further recommendations. 2. Bilateral lower lobe pneumonia. Respiratory status looking quite good at this point. On vancomycin and Zosyn currently. She remains stable, can likely transition to p.o. antibiotics and consider discharge tomorrow. 3. Physical deconditioning. Physical Therapy following the patient. Has been able to ambulate. The plan is for discharge home on discharge. 4. Hypokalemia. Improved. Continue to monitor and replete as needed. 5. Hyponatremia. Resolved. 6. Hypophosphatemia. Improved with repletion. Monitor.
[2019-04-24] MEDS: MORPHINE IV PRN ×3 (03:18→12:49)
[2019-04-24] MEDS: D5 1/2 NS + KCL 20 MEQ 1,000 ML IV SCH (03:18)
[2019-04-24] MEDS: LOVENOX SUBQ SCH (05:50)
[2019-04-24 07:39] LABS: BASO# 0.01 X1000 (0.0-0.2); BASO% 0.3 % (0.0-0.8); EOS# 0.18 X1000 (0.0-0.7); EOS% 5.2 % (0.0-10.0); HEMATOCRIT 30.5 % (37.0-47.0); HEMOGLOBIN 9.9 g/dL (12.0-16.0); LYMPH# 1.08 X1000 (1.2-3.4); LYMPH% 31.4 % (20.5-51.1); MCH 30.7 PG (27-31); MCHC 32.5 g/dL (33-37); MCV 94.4 FL (81-99); MONO# 0.49 X1000 (0.11-0.59); MONO% 14.2 % (1.7-9.3); MPV 10.2 FL (7.4-10.4); NEUT# 1.68 X1000 (1.4-6.5); NEUT% 48.9 % (42.2-75.2); PLT 281 X1000 (130-400); RBC 3.23 XMIL (4.2-5.4); RDW 14.5 % (11.5-14.5); WBC 3.44 X1000 (4.8-10.8)
[2019-04-24] MEDS: VENTOLIN HFA INH PRN (08:39)
[2019-04-24] MEDS: PERIDEX MT SCH (11:29)
[2019-04-24 13:06] VITALS: BP 125/80
--- NOTE | 2019-04-24 13:55 | Diag Imaging Result Doc PS360 ---
EXAM: CHEST-2 VIEWS INDICATION: aspiration pna TECHNIQUE: 2 views COMPARISON: 04/20/2019 FINDINGS: The right pleural effusion has diminished as has the adjacent atelectasis and/or infiltrate. There is still mild atelectasis and/or infiltrate at the left lung base. No other new consolidation is identified. Cardiac silhouette is stable. IMPRESSION: Interval decrease in right pleural effusion and adjacent atelectasis. Stable chest, otherwise. Electronically signed by Newton Juan 04/24/2019 1:52 PM
--- NOTE | 2019-04-24 18:32 | GENERAL SURGERY PROGRESS NOTE ---
DATE: 04/24/2019 SUBJECTIVE: The patient is doing well. She denies nausea, vomiting, abdominal pain, fever, chills, shortness of breath or chest pain. She is eating. She has had bowel movements. She is walking. OBJECTIVE: Vital Signs: She is afebrile. Vital signs are stable. General: She is awake, alert, oriented x3. No acute distress. Gastrointestinal: Soft, nondistended minimally tender. Incision is clean, dry, and intact. She does have good bowel sounds. ASSESSMENT AND PLAN: A 59-year-old female status post lysis of adhesions for small bowel obstruction. She appears to be much improved. She is ready for discharge. I will discuss with the hospitalist regarding any discharge antibiotics. She was diagnosed with possible pneumonia a few days ago. However, she appears to have not been on any antibiotics and appears to be clinically much improved. cc: Felix Turpin MD
--- NOTE | 2019-04-25 15:35 | DISCHARGE SUMMARY ---
ADMISSION DATE: 04/17/2019 DISCHARGE DATE: 04/24/2019 DISCHARGE DIAGNOSIS: 1. Small bowel obstruction status post laparotomy on lysis of adhesions. 2. Aspiration pneumonia. 3. Coronary artery disease. 4. History of CVA. 5. Nicotine dependence. 6. Anxiety and depression. 7. Hypertension. CONSULTATIONS: Dr. Felix Turpin from General Surgery. PROCEDURES: 1. Abdominal x-ray showed ileus or partial obstruction. 2. Small bowel x-ray showed a small bowel obstruction. 3. Exploratory laparotomy with lysis of adhesions performed by Dr. Turpin on 04/18/2019. 4. Chest CT showed bilateral lower lobe consolidation suggesting pneumonia with significant component of atelectasis and very small bilateral pleural effusion. HOSPITAL COURSE: This is a 59-year-old, black female with history of coronary artery disease, CABG, hypertension, COPD. She had surgery with partial colostomy and colostomy with takedown 2 years ago, 2016 and taken down 2018. She was still feeling completely fine until the day before admission when she started having some pain and discomfort in the abdomen and bloating so she decided to come to the emergency department. Workup as we mentioned above. The patient was taken to the operating room after we monitored this patient with the NG tube. After procedure, patient was placed on IV fluids and NPO, then considering that this abdominal pain was getting better, she was started on clear liquid diet. The patient also because of cough was ordered a CT of the chest with results as above but the patient did not receive any antibiotics during her hospitalization for this pneumonia. We have checked an x-ray at the time of discharge, which revealed some component of atelectasis versus pneumonia but considering that she did not have any fever, we will provide only azithromycin for 5 days. The patient is being released in stable condition. She has been cleared by General Surgery. She is going to be seen in the office as scheduled. DISCHARGE PHYSICAL EXAMINATION: Temperature 98.6 degrees, heart rate 76, respiratory rate 14, blood pressure 125/80, O2 saturation 100% on room air. General Examination: This is a 59-year- old female lying in bed, in no acute distress. Cardiovascular: S1, S2 heard. No murmurs, gallops, or rubs. Regular rate and rhythm. Respiratory Exam: Clear bilaterally to auscultation. No work of breathing or using accessory muscles. Abdomen: Soft, nontender to palpation. Bowel sounds present. No organomegaly. Extremities: No clubbing, cyanosis, or edema. Peripheral pulses present in both legs. Neurological: The patient is alert and oriented x3. Moves 4 extremities. DISCHARGE DISPOSITION: Home to self-care. FOLLOW UP: With Dr. Turpin as already scheduled. MEDICATIONS: 1. Azithromycin 500 mg 1 tablet p.o. daily for 5 days. 2. Pregabalin 150 mg p.o. b.i.d. 3. Clonazepam 1 mg p.o. b.i.d. 4. Ambien 10 mg, 1 tablet p.o. at bedtime. 5. Xarelto 20 mg 1 tablet p.o. daily. 6. Folic acid 1 tablet p.o. at bedtime. 7. Toprol-XL 25 mg 1 tablet p.o. daily. 8. Sertraline 50 mg 1 tablet p.o. daily. 9. Ventolin 2 puffs inhalation twice daily as needed. 10. Rosuvastatin 20 mg 1 tablet p.o. at bedtime. 11. Datil 7.5, 1 tablet p.o. daily as needed. cc: Rajiv Hall MD
== END 2019-04-24 14:40 | disposition home or self-care (01) | DRG 335 ==
LOC: SUATTDRO 06:20 → DIRADM 06:20 → 4N 07:17
PROVIDERS: ATTEND Internal Medicine

== ENCOUNTER 2019-07-17 12:09 | Inpatient (IN) ==
[2019-07-17] MEDS ORDERED: NS 1,000 ML IV PRN (12:14)
--- NOTE | 2019-07-17 12:29 | Diag Imaging Result Doc PS360 ---
CT HEAD W/O CONTRAST - 07/17/2019 INDICATION: stroke like symptoms COMPARISON: 04/24/2017 FINDINGS: There has been clear worsening in the scattered cerebral white matter hypodensities compatible with chronic microvascular ischemia. There are new lacunar infarctions bilaterally. No intracranial mass or hemorrhage. The skull is intact. The sinuses, mastoids, and middle ears are clear. IMPRESSION: Worsening chronic ischemic changes of the brain. No acute process. This exam was performed using automated exposure control, adjustment of mA or kV according to patient size, and/or use of iterative reconstruction technique Electronically signed by Eleazar Daily 07/17/2019 12:27 PM
--- NOTE | 2019-07-17 12:33 | Diag Imaging Result Doc PS360 ---
CHEST-PORTABLE - 07/17/2019 INDICATION: stroke like symptoms COMPARISON: 04/24/2019 FINDINGS: Stable CABG changes. The lungs are clear. Heart size is normal. No pneumothorax or pleural effusion. IMPRESSION: Negative exam. Electronically signed by Eleazar Daily 07/17/2019 12:31 PM
--- NOTE | 2019-07-17 12:45 | EKG Report ---
Test Performed on : 07/17/2019 12:43:20 PM Test Reason : Stroke like symptoms Blood Pressure : / mmHG Vent. Rate : 055 BPM Atrial Rate : 055 BPM P-R Int : 192 ms QRS Dur : 146 ms QT Int : 486 ms P-R-T Axes : 080 067 -05 degrees QTc Int : 464 ms Sinus bradycardia. Possible Left atrial enlargement Right bundle branch block T wave abnormality, consider inferior ischemia Abnormal ECG When compared with ECG of 30-AUG-2017 14:32, premature atrial complexes. are no longer present Vent. rate has decreased BY 40 BPM QT has shortened Unconfirmed Result
[2019-07-17] MEDS ORDERED: D50W SYRINGE IV ONE (13:07)
[2019-07-17] MEDS ORDERED: TYLENOL PO ONE (13:59)
[2019-07-17] MEDS ORDERED: APRESOLINE IV ONE (14:14)
[2019-07-17 14:17] LABS: URINE SOURCE CLEAN CATCH
[2019-07-17 14:36] LABS: BILIRUBIN URINE NEGATIVE (NEGATIVE); BLOOD URINE NEGATIVE (NEGATIVE); COLOR STRAW; GLUCOSE URINE NEGATIVE (NEGATIVE); KETONE URINE NEGATIVE (NEGATIVE); LEUKOCYTES URINE NEGATIVE (NEGATIVE); NITRITE URINE NEGATIVE (NEGATIVE); PROTEIN URINE NEGATIVE (NEGATIVE); SP GRAVITY URINE 1.007; TURBIDITY URINE CLEAR (CLEAR); UROBILINOGEN URINE NORMAL (NORMAL)
[2019-07-17 14:37] LABS: UR EPITHELIAL CELLS <10 /HPF (<10); URINE BACTERIA NEGATIVE /HPF; URINE RBC <10 /HPF (<10); URINE WBC <10 /HPF (<10)
[2019-07-17 15:07] LABS: BASO# 0.02 X1000 (0.0-0.2); BASO% 0.6 % (0.0-0.8); EOS# 0.13 X1000 (0.0-0.7); EOS% 3.9 % (0.0-10.0); HEMATOCRIT 42.6 % (37.0-47.0); HEMOGLOBIN 13.7 g/dL (12.0-16.0); LYMPH# 1.55 X1000 (1.2-3.4); LYMPH% 46.3 % (20.5-51.1); MCH 31.4 PG (27-31); MCHC 32.2 g/dL (33-37); MCV 97.5 FL (81-99); MONO# 0.26 X1000 (0.11-0.59); MONO% 7.8 % (1.7-9.3); MPV 10.7 FL (7.4-10.4); NEUT# 1.39 X1000 (1.4-6.5); NEUT% 41.4 % (42.2-75.2); PLT 300 X1000 (130-400); RBC 4.37 XMIL (4.2-5.4); RDW 19.5 % (11.5-14.5); WBC 3.35 X1000 (4.8-10.8)
[2019-07-17 15:11] LABS: UR AMPHETAMINES QUAL NONE DETECTED (NONE DETECT); UR BARBITUATES QUAL NONE DETECTED (NONE DETECT); UR BENZODIAZEPIN QUAL NONE DETECTED (NONE DETECT); UR CANNABINOIDS QUAL NONE DETECTED (NONE DETECT); UR COCAINE QUAL NONE DETECTED (NONE DETECT); UR METHADONE QUAL NONE DETECTED (NONE DETECT); UR OPIATES QUAL NONE DETECTED (NONE DETECT); UR OXYCODONE QUAL NONE DETECTED (NONE DETECT); UR PCP QUAL NONE DETECTED (NONE DETECT)
[2019-07-17] MEDS ORDERED: ASPIRIN PO ONE (17:06)
[2019-07-17 17:32] LABS: INR 1.14; PROTIME 14.7 Seconds (11.0-16.0)
[2019-07-17 17:34] LABS: AGAP 9; ALB/GLOB RATIO 1.3; ALBUMIN 3.8 g/dL (3.5-5.0); ALKALINE PHOSPHATASE 87 U/L (32-104); BUN 12 mg/dL (8-22); CALCIUM 9.5 mg/dL (8.8-10.2); CHLORIDE 110 mmol/L (98-107); COSMO 282; CREATININE 0.7 mg/dL (0.5-0.9); ESTIMATED GFR > 60; GLUCOSE 88 mg/dL (70-104); GOT 40 U/L (10-30); GPT 67 U/L (10-36); POTASSIUM 4.2 mmol/L (3.5-5.1); SODIUM 142 mmol/L (136-145); TCO2 23 mmol/L (25-35); TOTAL BILIRUBIN 0.44 mg/dL (0.20-1.00); TOTAL PROTEIN 6.8 g/dL (6.3-8.3)
--- NOTE | 2019-07-17 17:42 | PROVIDER DOCUMENTATION ---
This chart was entered by Juany Chen Scribe, acting as scribe for Oswaldo Espinoza MD. HPI-Neurological Disorder - General Chief Complaint: STROKE ALERT Stated Complaint: stroke like symptoms Time Seen by Provider: 07/17/19 12:14 Source: patient, EMS Allergies/Adverse Reactions: Patient Allergies Allergy/AdvReac Type Severity Reaction Status Date / Time No Known Allergies Allergy Verified 04/17/19 08:00 Home Medications: Home Medication List Medication Instructions Recorded Confirmed Last Taken Type Pregabalin [Lyrica] 150 mg PO TID 11/06/14 07/17/19 04/16/19 21:00 History 150 mg Zolpidem Tartrate [Ambien] 10 mg PO HS 08/30/17 07/17/19 04/16/19 21:00 History 10 mg Folic Acid 1 mg PO HS 04/17/19 07/17/19 04/16/19 21:00 History 1 mg Metoprolol Succinate E.r. [Toprol 25 mg PO HS 04/17/19 07/17/19 04/16/19 21:00 History Xl] 25 mg Rivaroxaban [Xarelto] 20 mg PO HS 04/17/19 07/17/19 04/16/19 21:00 History 20 mg Rosuvastatin Calcium [Crestor] 20 mg PO HS 04/17/19 07/17/19 04/16/19 21:00 H istory 2100 Sertraline [Zoloft] 50 mg PO DAILY 04/17/19 07/17/19 04/16/19 09:00 History 50 mg Hydrocodone/APAP 7.5 mg/325 mg 1 ea PO Q6H PRN PRN 7 Days #20 tab 04/24/19 07/17/19 Unknown Rx [[place]-7.5] Carisoprodol 1 tab PO PRN PRN 07/17/19 07/17/19 Unknown History Clonazepam [Klonopin] 1 mg PO TID 07/17/19 07/17/19 Unknown History - History of Present Illness-Neuro Nature of Presenting Problem: Pt is a 59 yobf brought into ED by EMS with c/o of "stoke symptoms of new weakness/loss of feeling on her right side" that started yesterday. Pt states that she has a hx of CVA, heart disease, and HTN but denies diabetes. Pt states that her speech is unaffected but she does have a headache located in the front of her head. Pt is alert and nontoxic in appearance. Headache Location: reports: frontal Severity: reports: mild Onset/Duration: reports: abrupt, 24 hours ago Timing: reports: still present Context: reports: none, falling Character of Altered Mental Status: reports: N/A Any recent trauma/injury?: reports: none Character of Deficits: reports: new weakness, falling New weakness or altered sensation location:: reports: RUE, RLE, right facial Cognitive Baseline: alert, oriented x3 Gait Baseline: walks without assistance Associated Symptoms: reports: headache, decreased ability to walk or stand, trouble walking, weakness. denies: short of breath, nausea, slurred speech Similar Symptoms Previously?: Yes (previous hx of CVA) Recently seen or treated by another doctor?: No Review of Systems - Adult - REVIEW OF SYSTEMS - ADULT Constitutional: denies: chills, fever Eyes: reports: no symptoms reported Ears, Nose, Mouth & Throat: reports: no symptoms reported Cardiovascular: denies: chest pain, syncope Respiratory: denies: cough, shortness of breath Gastrointestinal: reports: no symptoms reported Genitourinary: reports: no symptoms reported Musculoskeletal: reports: see HPI, muscle weakness Integumentary: reports: no symptoms reported Neurological: reports: headache/migraines, loss of balance. denies: slurred speech, syncope Psychiatric: reports: no symptoms reported Endocrine: reports: no symptoms reported Hematologic/Lymphatic: reports: no symptoms reported Allergic/Immunologic: reports: no symptoms reported All Other Systems: Reviewed and Negative Past History - Adult - PAST MEDICAL HISTORY-ADULT Review of Records: reports: Nursing Assessment Review, Medications Reviewed, Social history reviewed & non-contributory. Major Childhood Illnesses: reports: denies history Cardiovascular: reports: HTN, hyperlipidemia, NV (x3) Respiratory: reports: asthma, COPD Gastrointestinal: reports: denies history Obstetrical/Gynecological: reports: denies history Genitourinary: reports: denies history Musculoskeletal: reports: denies history Neurological: reports: CVA, TIA (x2) Psychiatric: reports: denies history Endocrine/Immune: reports: denies history Other Conditions: reports: denies history - PRIOR SURGERIES/PROCEDURES Surgical/Procedure History: reports: appendectomy, CABG, cholecystectomy, hysterectomy, other (colostomy ; recent colostomy reversal and partial protectomy) - IMMUNIZATION STATUS Childhood Immunizations: See Nurse Assessment Flu Vaccine: See Nurse Assessment - FAMILY HISTORY Family History: reviewed, not pertinent - SOCIAL HISTORY Smoking: cigarettes, greater than 1 pack/day Provider spent 3-5 mins advising pt. on dangers of tobacco.: Discussed manners to quit use, and f/u contacts for add'l counseling. Substance Use: denies Living Situation: alone Physical Exam- Neurological - Physical Exam-Neuro Initial Vital Signs Reviewed: Yes (Temp 97.4; HR 59) General Appearance: appears well, alert, mild distress Eye Exam: bilateral eye: normal inspection, PERRL HENMT: normocephalic/atraumatic, moist mucous membranes, normal ENT inspection, TMs normal, pharynx normal Head Injury: no evidence of injury Neck: non-tender, full range of motion, supple, normal inspection Respiratory: chest non-tender, lungs clear, normal breath sounds, no pleuratic chest pain, no respiratory distress, no accessory muscle use Abdominal Exam: non tender, soft Lymphatic: no adenopathy Extremity: non-tender, normal inspection, no pedal edema, no calf tenderness, normal capillary refill sorting machine operator Exam: normal hearing, normal speech, PERRL Motor/Sensory: weak motor strength RUE, weak motor strength RLE Neurologic: sensory deficit (Right sided facial) Integumentary: normal color, normal turgor, warm/dry Psych/Mental Status: normal thought content, normal thought process, oriented x 3 - Glascow Coma Scale Best Eye Response: (4) open spontaneously Best Verbal Response: (5) oriented Best Motor Response: (6) obeys commands Total Glascow Score: 15 Progress - PLAN OF CARE/RESULTS Progress/Plan/Lab Results: Vital Signs - 8 hr 07/17/19 12:35 Temperature 97.4 F L Pulse Rate 59 L Respiratory Rate 16 Blood Pressure 202/117 O2 Sat by Pulse Oximetry 97 Laboratory Results - last 24 hr 07/17/19 07/17/19 07/17/19 13:45 13:45 13:45 WBC 3.35 L RBC 4.37 Hgb 13.7 Hct 42.6 MCV 97.5 MCH 31.4 H MCHC 32.2 L RDW Std Deviation 19.5 H Plt Count 300 MPV 10.7 H Immature Gran % (Auto) 0.0 Neut % (Auto) 41.4 L Lymph % (Auto) 46.3 [place] % (Auto) 7.8 Eos % (Auto) 3.9 Baso % (Auto) 0.6 Immature Gran # (Auto) 0.00 Neut # (Auto) 1.39 L Lymph # (Auto) 1.55 [place] # (Auto) 0.26 Eos # (Auto) 0.13 Baso # (Auto) 0.02 PT INR PTT (Actin FS) Sodium 142 Potassium 4.2 Chloride 110 H Carbon Dioxide 23 L Anion Gap 9 BUN 12 Creatinine 0.7 Estimated GFR/1.73 m2 > 60 BUN/Creatinine Ratio 17 Glucose 88 Calculated Osmolality 282 Calcium 9.5 Total Bilirubin 0.44 AST 40 H ALT 67 H Alkaline Phosphatase 87 Troponin T High Sens 10 Total Protein 6.8 Albumin 3.8 Globulin 3.0 Albumin/Globulin Ratio 1.3 Urine Source Urine Color Urine Turbidity Urine pH Ur Specific [place] Urine Protein Ur Glucose (Stick) Ur Ketones (Stick) Urine Blood Urine Nitrite Urine Bilirubin Urobilinogen Dipstick Urine Leukocytes Urine WBC (Auto) Urine RBC (Auto) U Epithel Cells (Auto) Urine Bacteria (Auto) Urine Opiates Screen Ur Oxycodone Screen Ur Methadone, Qual Ur Barbiturates Screen Ur Phencyclidine Scrn Ur Amphetamines Screen U Benzodiazepines Scrn Urine Cocaine Screen U Cannabinoids Screen 07/17/19 07/17/19 07/17/19 14:09 14:09 16:22 WBC RBC Hgb Hct MCV MCH MCHC RDW Std Deviation Plt Count MPV Immature Gran % (Auto) Neut % (Auto) Lymph % (Auto) [place] % (Auto) Eos % (Auto) Baso % (Auto) Immature Gran # (Auto) Neut # (Auto) Lymph # (Auto) [place] # (Auto) Eos # (Auto) Baso # (Auto) PT 14.7 INR 1.14 PTT (Actin FS) 29.0 Sodium Potassium Chloride Carbon Dioxide Anion Gap BUN Creatinine Estimated GFR/1.73 m2 BUN/Creatinine Ratio Glucose Calculated Osmolality Calcium Total Bilirubin AST ALT Alkaline Phosphatase Troponin T High Sens Total Protein Albumin Globulin Albumin/Globulin Ratio Urine Source CLEAN CATCH Urine Color STRAW Urine Turbidity CLEAR Urine pH 7.0 Ur Specific [place] 1.007 Urine Protein NEGATIVE Ur Glucose (Stick) NEGATIVE Ur Ketones (Stick) NEGATIVE Urine Blood NEGATIVE Urine Nitrite NEGATIVE Urine Bilirubin NEGATIVE Urobilinogen Dipstick NORMAL Urine Leukocytes NEGATIVE Urine WBC (Auto) <10 Urine RBC (Auto) <10 U Epithel Cells (Auto) <10 Urine Bacteria (Auto) NEGATIVE Urine Opiates Screen NONE DETECTED Ur Oxycodone Screen NONE DETECTED Ur Methadone, Qual NONE DETECTED Ur Barbiturates Screen NONE DETECTED Ur Phencyclidine Scrn NONE DETECTED Ur Amphetamines Screen NONE DETECTED U Benzodiazepines Scrn NONE DETECTED Urine Cocaine Screen NONE DETECTED U Cannabinoids Screen NONE DETECTED Orders Category Date Time Status Cardiac Monitoring DIRECTED Care 07/17/19 12:14 Active Finger Stick Blood Sugar (ED) DIRECTED Care 07/17/19 12:14 Active Oxygen Therapy- ED Nursing DIRECTED Care 07/17/19 12:14 Active Saline Loc NOW Care 07/17/19 12:14 Active Regular Diet Diet 07/17/19 17:59 Active CHEST-PORTABLE [RAD] Stat Exams 07/17/19 12:[address] HEAD W/O CONTRAST [CT] Stat Exams 07/17/19 12:14 Completed CBC WITH ELECTRONIC DIFF [HEME] Stat Lab 07/17/19 13:45 Completed COMPREHENSIVE METABOLIC PANEL [CHEM] Stat Lab 07/17/19 13:45 Completed PROTIME WITH INR [COAG] Stat Lab 07/17/19 16:22 Completed PTT [COAG] Stat Lab 07/17/19 16:22 Completed TROPONIN T HIGH SENSITIVITY Stat Lab 07/17/19 13:45 Completed URINALYSIS W/POSS RFLX CULT [URINALYSIS] Stat Lab 07/17/19 14:09 Completed URINE DRUG SCREEN Stat Lab 07/17/19 14:09 Completed 0.9% Sodium Chloride Inj [Ns] 1,000 ml Med 07/17/19 12:14 Active IV 125 mls/hr Acetaminophen [Tylenol] Med 07/17/19 13:59 Discontinued 1,000 mg PO NOW ONE Aspirin Med 07/17/19 17:06 Discontinued 325 mg PO NOW ONE Dextrose 50% Syringe [D50w Syringe] Med 07/17/19 13:07 Discontinued 50 ml IV NOW ONE Hydralazine [Apresoline] Med 07/17/19 14:14 Discontinued 10 mg IV NOW ONE EKG [EKG] Stat Ther 07/17/19 12:14 Draft Echo Spec/Color Doppler Routine Ther 07/18/19 06:00 Ordered Transfer/Admit Order [TRANSFER] Routine Transfer 07/17/19 17:55 Ordered Result Diagrams: 07/17/19 13:45 07/17/19 13:45 - EKG 1 Time of EKG reading by physician:: 12:43 EKG Read and Signed by:: Oswaldo Espinoza EKG Interpretation (*Must complete 3 of following elements*): Abnormal Rate: 55 Rhythm: Sinus bradycardia QRS: RBB (block) Comments: Possible Left atrial enlargement; T wave abnormality, consider inferior isc - XRAY 1 XRAY Study: Chest Impression: See EMR Report (Patient: CHANDLER GONZALEZ Date: 07/17/19MR#: [id number] : 1960DM Status: PRE ERAcct#: [id number] Age/Sex: 59/FRoo m/Bed: Loc: ED Ordering Physician: Oswaldo Espinoza MD Family Physician: Puja Conde Reason for Procedure: stroke like symptoms Signed CHEST-PORTABLE - 07/17/2019 INDICATION: stroke like symptoms COMPARISON: 04/24/2019 FINDINGS: Stable CABG changes. The lungs are clear. Heart size is normal. No pneumothorax or pleural effusion. IMPRESSION: Negative exam. Electronically signed by Eleazar Daily 07/17/2019 12:31 PM 07/17/19 1231 Interpreting Physician: Eleazar Daily MD Dictated Date/Time: 07/17/19 1227 cc: Oswaldo Espinoza MD; Puja Conde) - CT/MRI 1 CT Study: Head Impression: Abnormal, See EMR Report (Department of Imaging Patient: CHANDLER GONZALEZ Date: 07/17/19MR#: [id number] : 1960 Status: PRE ERAcct#: [id number] Age/Sex: 59/FRoom/Bed: Loc: ED Ordering Physician: Oswaldo Espinoza MD Family Physician: Puja Conde Reason for Procedure: stroke like symptoms _ __ Signed CT HEAD W/O CONTRAST - 07/17/2019 INDICATION: stroke like symptoms COMPARISON: 04/24/2017 FINDINGS: There has been clear worsening in the scattered cerebral white matter hypodensities compatible with chronic microvascular ischemia. There are new lacunar infarctions bilaterally. No intracranial mass or hemorrhage. The skull is intact. The sinuses, mastoids, and middle ears are clear. IMPRESSION: Worsening chronic ischemic changes of the brain. No acute process. This exam was performed using automated exposure control, adjustment of mA or kV according to patient size, and/or use of itera tive reconstruction technique Electronically signed by Eleazar Daily 07/17/2019 12:27 PM 07/17/19 1227 Interpreting Physician: Eleazar Daily MD Dictated Date/Time: 07/17/19 1225 cc: Oswaldo Espinoza MD; Puja Conde) - CONSULTS/PCP/HOSPITALIST Notification #1 *Consult/PCP/Hospitalist*: Whitley Encarnacion Time Discussed: 17:41 Consult Disposition: Will see in ED, Admit Departure - Departure Date of Disposition Decision: 07/17/19 Time of Disposition Decision: 17:37 DIAGNOSIS: CVA (cerebral vascular accident), Uncontrolled hypertension Disposition: ADMITTED INPATIENT 09 Certified Medical Emergency: Emergent Condition: Fair Referrals and Follow-Ups: Puja Conde [Primary Care Provider] - - Critical Care Note This patient required my direct & personal management of CC.: No Attestation - Physician/ YUSUF Attestation Patient care was provided by Advanced Practice Provider:: No The physician spent face to face time with patient:: Yes Advanced Practice Provider documentation review:: Supervising physician onsite and consulted in the evaluation and care of this patient. The physician did have a face to face encounter with the patient. - NIH Stroke Scale Level of Consciousness: 0-Alert LOC Questions (ask month and age): 0-Answers Both Correctly LOC Commands (ask to open & close eyes;make a fist, let go): 0-Obeys Both Correctly Best Gaze (horizontal eye movement): 0-Normal Visual (use finger movement, counting or visual threat): 0-No Visual Loss Facial Palsy (show teeth or raise eyebrows & close eyes tght: 0-Symmetrical Movement Motor Function-left arm: 0-Normal Motor Function-right arm: 1-Drift Motor Function-left le-Normal Motor Function-right le-Drift Sensory(pin prick to face,arms,trunk,legs-compare side/side): 1-Mild to Moderate Decrease in Sensation Best Language(name item/read sentence.Ex-Down to Earth): 0-No Aphasia Dysarthria(Pt read words or say words Ex.Mama,Tip-Top,Thanks: 0-Normal Articulation Extinction and Inattention: 0-Normal Modified Padma Score Criteria: 3-moderate disability This chart was documented by the indicated scribe, (uJany Chen, Scribe) and accurately reflects the services I performed and decisions made by me, Oswaldo Espinoza MD, as attested by the provider's signature.
--- NOTE | 2019-07-17 18:46 | HISTORY AND PHYSICAL ---
PRIMARY CARE PHYSICIAN: Listed as none. CHIEF COMPLAINT: New weakness and loss of feeling on her right side, unable to walk with a fall that began yesterday and progressively worsened. HISTORY OF PRESENTING ILLNESS: This is a 59-year-old female who presents to [facility] by EMS with complaints of stroke-like symptoms with weakness on the right side of her arm and leg and loss of feeling. States she has had difficulty walking and had a fall yesterday. These symptoms began yesterday and progressively worsened. She has had a previous stroke in the past and states that she has been taking all of her medications as prescribed, which included Xarelto. She does not have any slurred speech or difficulty swallowing. Her workup showed a CT of the head with new lacunar infarctions bilaterally. So, she will be admitted to the medical unit for further evaluation and treatment. PAST MEDICAL HISTORY: 1. Coronary artery disease status post CABG, has had 2 MIs in the past. 2. History of CVA with no reported residual neurological deficits. 3. Anxiety, depression. 4. Hypertension. 5. Nicotine dependency. PAST SURGICAL HISTORY: 1. Cholecystectomy. 2. Status post CABG. 3. Hysterectomy. 4. Laparotomy and lysis of adhesions secondary to a small bowel obstruction. FAMILY HISTORY: Significant for coronary artery disease. SOCIAL HISTORY: She continues to smoke a half a pack of cigarettes a day and has done so for 40+ years. Denies any alcohol or illicit drug use. ALLERGIES: She has no known drug allergies. HOME MEDICATIONS: A current list needs to be reconciled, reviewed and restarted as appropriate. We will place an order for nursing to update and confirm home medications. LABORATORY DATA: Showed a white blood cell count of 3.35, hemoglobin 13.7, hematocrit 42.6, and platelets 300,000. PT and INR of 14.7 and 1.14. Sodium 142, potassium 4.2, chloride 110, CO2 23, BUN of 12, creatinine 0.7, glucose 88. Troponin T has sensitivity of 10. Urinalysis was negative. Urine drug screen was negative. CT of the head showed new lacunar infarctions bilaterally. EKG showed sinus bradycardia at 55. Chest x-ray showed a negative examination. REVIEW OF SYSTEMS: She denied any fever, chills, blurred vision, dizziness, chest pain, coughing, shortness of breath. She complained of right-sided weakness with difficulty walking and a fall secondary to the right-sided weakness. She denied any abdominal pain, constipation, diarrhea, burning or hurting with urination. PHYSICAL EXAMINATION: VITAL SIGNS: On arrival, she had a temperature of 97.4 degrees, pulse 59, respirations 16, blood pressure was 202/117, now down to 169/93. GENERAL: This is a 59-year-old female who is lying in the bed and answers questions appropriately. HEENT: Normocephalic, atraumatic. Normal ENT inspection. Oropharynx and nares are clear. EYES: Pupils are equal, round, reactive to light and accommodation. Extraocular movements are intact. NECK: Normal inspection. Normal range of motion. LUNGS: Clear to auscultation bilaterally with equal lung expansion and chest wall movement. HEART: With regular rate and rhythm. No murmurs, rubs, or gallops. ABDOMEN: Soft, nontender, nondistended. Bowel sounds are present x4 quadrants. MUSCULOSKELETAL: She has 5/5 strength on the left side, 2 to 3/5 on the right side. NEUROLOGICAL: She has right sided weakness with right hand grasp less than left, and right lower extremity weakness with right less than left. Otherwise normal neurological finding. ASSESSMENT: 1. Acute cerebrovascular accident with right-sided weakness. 2. Hypertension. 3. Tobacco abuse. PLAN: She will be admitted to the medical unit and placed on telemetry. We will do an MRI of the brain without contrast in the a.m. Do an echocardiogram and carotid Doppler in the a.m. We need to update and confirm home medications. We are going to allow for some permissive hypertension. Placed on a healthy heart diet. Normal saline at 125 mL an hour. Recheck CBC, BMP and lipid panel in the a.m. Further orders after seen by attending. We will also get physical therapy to evaluate and treat. Dictated by YG Bustamante for Fabian Encarnacion MD cc: YG Bustamante MD
--- NOTE | 2019-07-17 19:03 | HISTORY AND PHYSICAL ---
ADDENDUM: HISTORY OF PRESENT ILLNESS: I have seen and examined Ms. Cristobal today in the emergency room. Ms. Cristobal presented to the emergency room today because of a right-sided weakness that started yesterday and she said she woke up 3 days ago. She was feeling dizzy, wobbly and generalized weakness, but did not go to the doctor. She went to her primary care doctor today and was sent to the emergency room because of the right-sided weakness and pain. Upon presenting she was evaluated. She was found to be extremely hypertensive with a blood pressure of 202/117, pulse of 59, respirations 16, temperature 97.4 degrees. Of note, Ms. Cristobal has a history of previous CVA and coronary artery disease status post CABG. 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 Current physical exam shows, she does have mild right-sided hemiparesis with a power of about 4- on the right side. Speech seems to be clear and I was not able to elicit any cranial nerve deficits. IMAGING STUDIES: Showed a CT scan of the head shows a worsening chronic ischemic changes of the brain. No acute disease. A chest x-ray was negative. EKG shows a normal sinus rhythm, Q-wave in the inferior leads with right bundle branch pattern. ASSESSMENT: 1. Mild right-sided hemiparesis concerning for a left hemispheric stroke. The patient will undergo the stroke protocol. She is currently off the window for recombinant tissue plasminogen activator. 2. History of coronary artery disease. 3. 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 So, in general, I think Ms. Cristobal is fairly stable. She is going to be admitted to the medical floor under telemonitoring. We started her back on her home medications. Will be pending an MRI of the brain and MRA of the neck and brain, echocardiogram and then re-evaluate her in the morning. cc: Fabian Encarnacion MD
[2019-07-17] MEDS ORDERED: ZOFRAN IV PRN (21:43)
[2019-07-17] MEDS ORDERED: TYLENOL PO PRN (21:43)
[2019-07-18] MEDS: NORCO-7.5 PO PRN ×4 (01:06→20:59)
[2019-07-18 07:24] LABS: BASO# 0.03 X1000 (0.0-0.2); BASO% 0.8 % (0.0-0.8); EOS# 0.16 X1000 (0.0-0.7); EOS% 4.3 % (0.0-10.0); HEMOGLOBIN 11.9 g/dL (12.0-16.0); LYMPH# 1.99 X1000 (1.2-3.4); LYMPH% 52.9 % (20.5-51.1); MCH 30.2 PG (27-31); MCHC 32.2 g/dL (33-37); MCV 93.9 FL (81-99); MONO# 0.33 X1000 (0.11-0.59); MONO% 8.8 % (1.7-9.3); MPV 9.8 FL (7.4-10.4); NEUT# 1.25 X1000 (1.4-6.5); NEUT% 33.2 % (42.2-75.2); PLT 294 X1000 (130-400); RBC 3.94 XMIL (4.2-5.4); RDW 16.5 % (11.5-14.5); WBC 3.76 X1000 (4.8-10.8)
[2019-07-18 07:46] LABS: AGAP 11; BUN 17 mg/dL (8-22); CALCIUM 8.9 mg/dL (8.8-10.2); CHLORIDE 109 mmol/L (98-107); COSMO 284; CREATININE 0.8 mg/dL (0.5-0.9); ESTIMATED GFR > 60; GLUCOSE 93 mg/dL (70-104); POTASSIUM 3.9 mmol/L (3.5-5.1); SODIUM 142 mmol/L (136-145); TCO2 22 mmol/L (25-35)
--- NOTE | 2019-07-18 15:10 | Diag Imaging Result Doc PS360 ---
EXAM: MRI BRAIN W/WO CONTRAST INDICATION: stroke COMPARISON: CT head dated 07/17/2019. No prior MRI brain is available for comparison. FINDINGS: There is no evidence of acute infarct. There is patchy T2/FLAIR hyperintensity in the periventricular and subcortical white matter suggesting moderate microangiopathy. There are a few chronic lacunar infarcts involving the periventricular white matter and the basal ganglia bilaterally. There is a chronic lacunar infarct in the lidia to the right of midline. There is no discrete intracranial mass, mass effect, or intracranial hemorrhage. There is no evidence of abnormal intracranial enhancement. The surrounding soft tissues and bony structures are essentially unremarkable. IMPRESSION: Several chronic lacunar infarcts as well as moderate white matter microangiopathy is described above. No evidence of acute intracranial pathology. Electronically signed by Newton Juan 07/18/2019 3:07 PM
--- NOTE | 2019-07-18 15:22 | Diag Imaging Result Doc PS360 ---
EXAM: MRA BRAIN W/O CONTRAST INDICATION: stroke TECHNIQUE: 3-D [id number] axial images through the [place] were obtained in usual fashion. COMPARISON: None. FINDINGS: The anterior, middle, and posterior cerebral arteries exhibit no flow-limiting stenosis. The distal vertebral arteries and basilar arteries are also widely patent. There is mild irregularity involving the supraclinoid segments of the internal carotid arteries bilaterally, predominantly on left, with what appears to be tiny outpouchings. These may represent miniscule aneurysms automated be artifactual. If warranted, a CTA head may be helpful. No other cerebral aneurysm is appreciated. No vascular malformation is appreciated. IMPRESSION: Mild irregularity with tiny outpouchings associated with the supraclinoid segments of the ICAs. Please see above discussion. No flow-limiting stenosis is appreciated. Electronically signed by Newton Juan 07/18/2019 3:19 PM
--- NOTE | 2019-07-18 15:31 | Diag Imaging Result Doc PS360 ---
EXAM: MRA NECK W/O CONT INDICATION: stroke TECHNIQUE: 3-D [id number] axial images through the neck were obtained without IV contrast. 3-D MIPS were then generated. COMPARISON: None. FINDINGS: The common carotid arteries appear to be widely patent bilaterally. There is perhaps slight atherosclerotic irregularity at the carotid bulbs, more prominent on the left. However, there is no evidence of flow-limiting stenosis. The internal carotid arteries appear to be widely patent throughout the neck, otherwise. The vertebral arteries are patent throughout their courses with no flow-limiting stenosis or vascular malformation. IMPRESSION: Likely mild atherosclerotic disease at the carotid bulbs but no flow-limiting stenosis is appreciated. Electronically signed by Newton Juan 07/18/2019 3:29 PM
[2019-07-18] MEDS ORDERED: SOMA PO PRN (16:44)
[2019-07-18] MEDS ORDERED: LYRICA PO SCH (17:00)
[2019-07-18] MEDS ORDERED: KLONOPIN PO SCH (17:00)
--- NOTE | 2019-07-18 17:27 | PROGRESS NOTE ---
DATE: 07/18/2019 SUBJECTIVE: Ms. Cristobal, a 59-year-old was admitted on 07/17/2019. She is a patient of Dr. Puja Britton. This is a 59-year-old black female who presented to [facility] by EMS with complaints of stroke-like symptoms, which weakness on the right side, right arm, right leg, loss of feeling. She had difficulty waking and fell asleep yesterday. Symptoms began yesterday and progressively worsened. She had a previous stroke in the past and states that she has been taking all of her medications. They put on Xarelto for DVT and pulmonary thromboemboli but not taking any aspirin. She did not have any slurred speech or difficulty swallowing. She states she thinks her vision is about the same. CT scan of the head showed new lacunar infarctions bilaterally. She is admitted for treatment. PAST MEDICAL HISTORY: 1. Coronary artery disease status post CABG. She has had 2 MIs in the past. 2. History of CVA. No reported residual neurologic deficits. 3. Anxiety and depression. 4. Hypertension. 5. Nicotine dependency. PAST SURGICAL HISTORY: 1. Cholecystectomy. 2. Status post CABG. 3. Hysterectomy. 4. Laparotomy and lysis of adhesions secondary to small-bowel obstruction. ADMISSION DIAGNOSIS: Acute cerebrovascular accident, right-sided weakness. We plan to do an MRI of her head without contrast, echocardiogram, carotid Doppler. She has a history of hypertension. PHYSICAL EXAMINATION: General: Today she is awake and alert. Feels like her right arm and right leg are about the same. No trouble with speech or difficulty with vision. Vital signs: She remains afebrile, temperature 98.7 degrees, pulse 62, respirations 14, blood pressure 147/88. Eyes: Pupils are equal and round. Lungs: Clear in all lung donis. Cardiovascular: Regular rhythm and rate without murmur or S3. Abdomen: Soft. Skin: Warm and dry. Urine output is 1900 mL. She did get an MRA of the head, mild irregularity and tiny outpouchings associated with the supraclinoid segments of the ICAs. No flow-limiting stenosis appreciated. MRI of the brain shows several chronic lacunar infarcts as well as moderate in white matter and some micro encephalopathy described. No evidence of acute intracranial pathology. MRA of the neck, likely mild atherosclerotic fissures in the carotid balls, but no flow-limiting stenosis appreciated. LABORATORY DATA: White count was 3760, hematocrit 37, platelet count 294,000. Chemistry sodium 142, potassium 3.9, chloride 109. BUN is 17, creatinine 0.8. Blood sugars 153, 101 and 93. She is getting normal saline at 125 mL an hour, gets hydrocodone 7.5 mg q.6 hours p.r.n., aspirin 325 mg a day, and she was on Xarelto before. 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 I think that we will continue physical therapy and try her on aspirin for a while, check a cholesterol profile. LDL was 76, HDL was 33. I do think she would benefit from being on a statin, so we will put her on some Lipitor 40 mg daily. cc: Kash Marks MD
[2019-07-18] MEDS: XARELTO PO SCH (20:59)
[2019-07-18] MEDS: TOPROL XL PO SCH (20:59)
[2019-07-18] MEDS: LIPITOR PO SCH (20:59)
[2019-07-18] MEDS: AMBIEN PO SCH (20:59)
[2019-07-18] MEDS: FOLIC ACID PO SCH (20:59)
[2019-07-18] MEDS: CRESTOR PO SCH (20:59)
[2019-07-19] MEDS: NORCO-7.5 PO PRN ×2 (04:29→09:36)
[2019-07-19] MEDS: ZOLOFT PO SCH (09:36)
[2019-07-19] MEDS: LYRICA PO SCH ×3 (09:36→21:06)
[2019-07-19] MEDS: KLONOPIN PO SCH ×3 (09:36→21:05)
--- NOTE | 2019-07-19 14:00 | PROGRESS NOTE ---
DATE: 07/19/2019 SUBJECTIVE: There is really no change in her right side in her strength. She is not uncomfortable. She is breathing and eating okay. I did get her back on her home medications. She would like me to go up on her pain medicine. A stronger dose, she said the 7.5 is not doing it, so I will go up to a 10 mg of [place] q.6 hours p.r.n. OBJECTIVE: Vital signs: She is afebrile, temperature 98.1 degrees, pulse 52, respirations 18, blood pressure 142/83. HEENT: Pupils are equal and round. Lungs: Clear in all lung donis. Cardiovascular: Regular rate without murmur or S3. Urine output: 4200 mL. Neurological: She still does not have much movement in her right arm or her right lower extremity. Her speech is good. Her swallow is good by report. No visual disturbance or nothing has changed with her vision. ASSESSMENT AND PLAN: She had an MRI of her head, mild irregularity, tiny outpouching associated with subarachnoid segments of the internal carotid arteries. No flow-limiting stenosis appreciated. There are chronic lacunar infarcts as well as moderate white matter changes, but neurologically she is about the same. We are going to continue physical therapy and assess what we need to do and I did bring up the possibility that she may have to go to rehab. REVIEW OF HER CURRENT MEDICATIONS: She is on Lipitor 40 mg at bedtime, Soma 350 mg p.o. at bedtime p.r.n., Klonopin 1 mg I think she is taking 3 times a day, folic acid 1 mg at bedtime, metoprolol succinate 25 mg at bedtime, Lyrica 150 mg p.o. I think she is taking that 3 times a day, and Zoloft 50 mg daily, Ambien 10 mg at bedtime. So I will go up on her hydrocodone to 10 mg q.6 hours p.r.n. cc: Kash Marks MD
--- NOTE | 2019-07-19 14:19 | Carotid Study ---
DATE: 07/18/2019 REQUESTING PROVIDER: YG Neri LABEL PASTER: Samm INDICATION: Acute CVA. EQUIPMENT: [employer] Vivid E9 ultrasound system a 9 L-D transducer. FINDINGS: Complete diagram of ultrasound images can be seen scanned in the patient's medical record. The peak systolic velocity noted on the right side is in the distal internal carotid artery and is noted to be 85. The peak systolic velocity on the left side is also in the distal internal carotid artery and is noted to be 87. The calculated internal common ratio on the right is 0.89, left 1.00. Calculated stenosis on the right 0 to 39%, left 0 to 39%. Both vertebral arteries appear to be antegrade flow. There appears to be some atherosclerosis, but at this time does not produce a hemodynamically significant flow-limiting stenosis. Both vertebral arteries were antegrade flow. INTERPRETATION: By strict velocity criteria, no hemodynamically significant flow-limiting stenosis. cc: MD Whitley Oro CRNP
[2019-07-19] MEDS: NORCO-10 PO PRN ×2 (14:49→21:06)
[2019-07-19] MEDS: COLACE PO SCH (15:20)
[2019-07-19] MEDS: TOPROL XL PO SCH (21:05)
[2019-07-19] MEDS: XARELTO PO SCH (21:05)
[2019-07-19] MEDS: AMBIEN PO SCH (21:05)
[2019-07-19] MEDS: CRESTOR PO SCH (21:06)
[2019-07-19] MEDS: LIPITOR PO SCH (21:06)
[2019-07-19] MEDS: FOLIC ACID PO SCH (21:06)
[2019-07-20] MEDS: NORCO-10 PO PRN ×4 (04:11→23:45)
[2019-07-20] MEDS: ZOLOFT PO SCH (09:58)
[2019-07-20] MEDS: COLACE PO SCH (09:58)
[2019-07-20] MEDS: KLONOPIN PO SCH ×3 (09:58→21:37)
[2019-07-20] MEDS: LYRICA PO SCH ×3 (09:58→21:37)
[2019-07-20] MEDS: PLAVIX PO SCH (15:56)
--- NOTE | 2019-07-20 15:56 | PROGRESS NOTE ---
DATE: 07/20/2019 SUBJECTIVE: Ms. Cristobal says she feels better, about the same, and as far as her strength on her right side, she does have a little trouble with walking, but she can with some assistance. Her pain is better controlled. She did want to ask about getting a laxative and she wants to go to rehab. She would like to go to [facility] on Wednesday. OBJECTIVE: Vital signs: Temperature 97.9 degrees, pulse 64, respirations 20, blood pressure 142/76. HEENT: Pupils are equal and round. Neck: CVP is less than 6 cm. No distended neck veins. Lungs: Clear in all lung donis. Cardiovascular: Regular rhythm and rate without murmur or S3. Abdomen: Soft. Skin: Warm and dry. ASSESSMENT AND PLAN: MRI of the head and had some mild irregularities, tiny outpouchings associated with supraclinoid segments of the internal carotid artery, flow-limiting stenosis appreciated. MRI of the brain shows several chronic lacunar infarcts and moderate white matter and microencephalopathy described. No evidence of intracranial pathology. MRA of the neck, likely atherosclerotic fissures in the carotid bulbs but no flow-limiting stenosis. So, continue her physical therapy and plan is to try and get her to rehab. PAST MEDICAL HISTORY: 1. Includes coronary artery disease status post CABG and 2 MIs in the past. 2. History of CVA. No reported residual neuro deficits in the past. 3. Anxiety, depression. 4. Hypertension. 5. Nicotine dependence. PAST SURGICAL HISTORY: Status post cholecystectomy, status post CABG, hysterectomy, laparotomy with lysis of adhesions secondary to small-bowel obstruction. REVIEW OF HER ORDERS: I do not see any change. I do want her on both aspirin and Plavix and so we will initiate that, and she is on a stool softener. cc: Kash Marks MD
[2019-07-20] MEDS: AMBIEN PO SCH (21:37)
[2019-07-20] MEDS: FOLIC ACID PO SCH (21:37)
[2019-07-20] MEDS: CRESTOR PO SCH (21:37)
[2019-07-20] MEDS: LIPITOR PO SCH (21:37)
[2019-07-20] MEDS: TOPROL XL PO SCH (21:37)
[2019-07-20] MEDS: XARELTO PO SCH (21:37)
[2019-07-21] MEDS: NORCO-10 PO PRN ×2 (07:02→15:17)
[2019-07-21] MEDS: KLONOPIN PO SCH ×3 (09:18→20:46)
[2019-07-21] MEDS: PLAVIX PO SCH (10:01)
[2019-07-21] MEDS: ASPIRIN PO SCH (10:01)
[2019-07-21] MEDS: LYRICA PO SCH ×3 (10:02→20:46)
[2019-07-21] MEDS: ZOLOFT PO SCH (10:02)
[2019-07-21] MEDS: COLACE PO SCH (10:02)
--- NOTE | 2019-07-21 13:29 | PROGRESS NOTE ---
DATE: 07/21/2019 SUBJECTIVE: Ms. Cristobal is doing well. Still kind of dragging her leg when she walks. She is eating well. Bowels are moving comfortably and not in any pain. OBJECTIVE: Vital Signs: Remains afebrile, temperature 98 degrees, pulse 63, respirations 18, blood pressure 128/66. HEENT: Pupils are equal and round. Lungs: Clear in all lung donis. Cardiovascular: Regular rate without murmur or S3. Abdomen: Soft, skin is warm and dry. ASSESSMENT/PLAN: 1. Coronary artery disease status post coronary artery bypass grafting. He has had 2 myocardial infarctions in the past. 2. History of cerebrovascular accident and no reported previous residual deficit but came in with some right-sided weakness and extension of cerebrovascular accident. 3. Anxiety, depression. 4. Hypertension. 5. Nicotine dependence. REVIEW OF ORDERS: She is on aspirin 81 mg a day, Lipitor 40 mg at bedtime, Soma 350 mg at bedtime p.r.n., Klonopin 1 mg 3 times a day, Plavix 75 mg a day, Colace 200 mg a day, folic acid 1 mg at bedtime, hydrocodone 10 mg p.o. q.6 hours p.r.n., metoprolol 25 mg at bedtime, normal saline at 125 mL an hour. Lyrica 150 mg 3 times a day, Xarelto 20 mg at bedtime, Crestor 20 mg at bedtime, Zoloft 50 mg daily and Ambien 10 mg at bedtime. Waiting on rehab, looks like she may be eligible to go to [facility] on Wednesday. cc: Kash Marks MD
[2019-07-21] MEDS: XARELTO PO SCH (20:45)
[2019-07-21] MEDS: AMBIEN PO SCH (20:45)
[2019-07-21] MEDS: FOLIC ACID PO SCH (20:45)
[2019-07-21] MEDS: TOPROL XL PO SCH (20:45)
[2019-07-21] MEDS: CRESTOR PO SCH (20:45)
[2019-07-21] MEDS: LIPITOR PO SCH (20:46)
[2019-07-22] MEDS: NORCO-10 PO PRN ×4 (01:41→20:10)
[2019-07-22] MEDS: LYRICA PO SCH ×3 (09:44→20:06)
[2019-07-22] MEDS: KLONOPIN PO SCH ×3 (09:44→20:07)
[2019-07-22] MEDS: ZOLOFT PO SCH (10:10)
[2019-07-22] MEDS: PLAVIX PO SCH (10:10)
[2019-07-22] MEDS: ASPIRIN PO SCH (10:10)
[2019-07-22] MEDS: COLACE PO SCH (10:10)
--- NOTE | 2019-07-22 11:10 | PROGRESS NOTE ---
DATE: 07/22/2019 She says she feels a little better. Right leg is still pretty weak. I think her right arm is improved some. She is eating, her bowels are moving. Our plan is to try to go to [facility] on Wednesday. OBJECTIVE: Temp is 97.9 degrees, pulse 50, respirations 12, blood pressure 125/88. Pupils are equal and round. Lungs are clear in all lung donis. Cardiovascular exam, regular rhythm an rate without murmur or S3. Abdomen is soft. Skin is warm and dry. ASSESSMENT: 1. Coronary artery disease, status post coronary artery bypass grafting. She has had 2 myocardial infarctions in the past. 2. History of cerebrovascular accident. No reported previous residual deficits, but came in with right-sided weakness and what looks like extension of CVA. 3. Anxiety, depression. 4. Hypertension. 5. Nicotine dependence. PLAN: Her brain MRI severe several chronic lacunar infarcts, as well as moderate white matter microangiopathy. Her MRA of the neck, likely mild atherosclerotic disease in carotid bulbs with no flow-limiting stenosis appreciated. An MRA of the brain, mild irregularity with tiny outpouchings associated with supraclinoid segments of the ICA. She will continue physical therapy. She is on aspirin and she is on Plavix. Note, that her blood sugars appear under good control. cc: Kash Marks MD
[2019-07-22] MEDS: XARELTO PO SCH (20:07)
[2019-07-22] MEDS: CRESTOR PO SCH (20:07)
[2019-07-22] MEDS: LIPITOR PO SCH (20:07)
[2019-07-22] MEDS: FOLIC ACID PO SCH (20:07)
[2019-07-22] MEDS: TOPROL XL PO SCH (20:07)
[2019-07-22] MEDS: AMBIEN PO SCH (20:07)
[2019-07-23] MEDS: NORCO-10 PO PRN ×3 (04:34→17:36)
[2019-07-23] MEDS: COLACE PO SCH (09:04)
[2019-07-23] MEDS: ZOLOFT PO SCH (09:04)
[2019-07-23] MEDS: ASPIRIN PO SCH (09:04)
[2019-07-23] MEDS: PLAVIX PO SCH (09:04)
[2019-07-23] MEDS: KLONOPIN PO SCH ×3 (10:41→20:28)
[2019-07-23] MEDS: LYRICA PO SCH ×3 (10:41→20:29)
--- NOTE | 2019-07-23 13:11 | PROGRESS NOTE ---
DATE: 07/23/2019 SUBJECTIVE: Ms. Cristobal feels good. She had a good night. Sleeping well. She is eating well. Her bowels are moving. No complaints. OBJECTIVE: Vital Signs: Remains afebrile, temperature 98.7 degrees, pulse 67, respirations 12, blood pressure 122/75. HEENT: Pupils are equal and round. Lungs: Clear in all lung donis. Cardiovascular: Regular rhythm and rate without murmur or S3. Abdomen: Soft. Skin: Warm and dry. ASSESSMENT AND PLAN: 1. Coronary artery disease, status post coronary artery bypass grafting. He has had 2 myocardial infarction in the past. 2. History of cerebrovascular accident and no previous residual defects, but now right-sided hemiparesis, predominantly affecting her leg. She wants to go to rehab and wants to go to [facility]. Hopefully, she can go tomorrow. 3. Anxiety and depression. Aware. 4. Hypertension. 5. Nicotine dependence. She is on nicotine patch. cc: Kash Marks MD
[2019-07-23] MEDS: TOPROL XL PO SCH (20:28)
[2019-07-23] MEDS: XARELTO PO SCH (20:28)
[2019-07-23] MEDS: AMBIEN PO SCH (20:28)
[2019-07-23] MEDS: FOLIC ACID PO SCH (20:28)
[2019-07-23] MEDS: LIPITOR PO SCH (20:29)
[2019-07-23] MEDS: CRESTOR PO SCH (20:29)
[2019-07-24] MEDS: NORCO-10 PO PRN ×3 (04:08→21:01)
[2019-07-24] MEDS: PLAVIX PO SCH (09:25)
[2019-07-24] MEDS: ZOLOFT PO SCH (09:25)
[2019-07-24] MEDS: KLONOPIN PO SCH ×3 (09:25→21:01)
[2019-07-24] MEDS: LYRICA PO SCH ×3 (09:25→21:01)
[2019-07-24] MEDS: COLACE PO SCH (09:25)
[2019-07-24] MEDS: ASPIRIN PO SCH (09:26)
--- NOTE | 2019-07-24 14:08 | PROGRESS NOTE ---
DATE: 07/24/2019 SUBJECTIVE: Ms. Cristobal is comfortable. She was sleeping, breathing comfortably. Remains afebrile. She is hoping she gets to go to rehab this morning. OBJECTIVE: Vital Signs: Temp 98.3 degrees, pulse 55, respirations 18, blood pressure 111/66. HEENT: Pupils equal round. Lungs: Clear in all lung field. Cardiovascular: Regular rate without murmur or S3. Abdomen: Soft. Skin: Warm and dry. ASSESSMENT AND PLAN: 1. Coronary artery disease status post coronary artery bypass grafting. He has had 2 myocardial infarctions in the past. 2. History of cerebrovascular accident. No previous residual defects, but at this time some right hemiparesis predominantly in her leg. She wants to go to rehab. Continue physical therapy. Hopefully a place open. She wants to go to [facility] in [place]. 3. Anxiety and depression. Aware. 4. Hypertension. 5. Nicotine dependence. Continue physical therapy. cc: Kash Marks MD
--- NOTE | 2019-07-24 16:20 | DISCHARGE SUMMARY ---
ADMISSION DATE: 07/17/2019 DISCHARGE DATE: HISTORY: This is a 59-year-old patient of Dr. Puja Conde. She came in with new weakness, loss of feeling on her right side, and unable to walk and fall. She had a fall yesterday and just felt like her weakness has progressively worsened. A 59-year-old black female presented to [facility] per EMS with complaints of stroke-like symptoms with weakness on the right side of her arm and loss of feeling in her leg and weakness in the leg as well. She states she has had difficulty walking, and had a fall the previous day. The symptoms began the previous day and just steadily worsened. She has had a previous stroke in the past, but does not feel like she has had any residual defects. She has been taking all of her medications prescribed including Xarelto. She did have some slurred speech, and difficulty swallowing. Her workup with a CT of her head without contrast with new lacunar infarctions bilaterally, but she was admitted to the hospital. PAST MEDICAL HISTORY: 1. Coronary artery disease status post CABG. She has had 2 IL's in the past. 2. History of CVA. No reported residual neurologic deficits. 3. Anxiety and depression. 4. Hypertension. 5. Nicotine dependency. PAST SURGICAL HISTORY: 1. Cholecystectomy. 2. Status post CABG. 3. Hysterectomy. 4. Laparotomy with lysis of adhesions secondary to small-bowel obstruction. FAMILY HISTORY: Patient has significant coronary artery disease. ADMISSION DIAGNOSES: 1. Suspected acute cardiovascular accident with right-sided weakness. 2. Hypertension. 3. Tobacco use. She was put in the unit and put on telemetry. DIAGNOSTIC: 1. CT of her head without contrast worsening chronic ischemic changes in the brain. No acute process. Chest x-ray was negative. No sign of infiltrates. 2. She had carotid Doppler's done on 07/17 by strict velocity criteria. No hemodynamically significant flow limiting stenosis. 3. She had a brain MRI done on 07/17 with mild irregularity with tiny outpouching associated with supraclinoid segments of the internal carotid arteries. No flow-limiting stenosis appreciated. 4. Brain MRI severe chronic lacunar infarcts as well as moderate white matter microangiopathy. No evidence of acute pathology. 5. Her neck MRA likely mild atherosclerotic disease in the carotid bulbs but no flow limiting stenosis. 6. She underwent physical therapy and had some return of some of her strength she felt in her arm. Her right leg still seemed to be weak, and was dragging some. She wanted to go to rehab, and felt she was ready. She was planning on going to [facility] Re[facility]. DISCHARGE MEDICATIONS: She will be on aspirin 81 mg a day, Lipitor 40 mg at bedtime. She takes Soma p.o. at bedtime p.r.n. She has been on Klonopin 1 mg 3 times a day, Plavix 75 mg a day, Colace 200 mg a day, folic acid 1 mg a day. She gets [place] 10 q.6 hours p.r.n. pain, Toprol-XL 25 mg at bedtime, Lyrica 150 mg 3 times a day. She is on her Xarelto 20 mg at bedtime. Crestor 20 mg at bedtime, Zoloft 50 mg a day, and Ambien 10 mg at bedtime. cc: Kash Marks MD
[2019-07-24] MEDS: FOLIC ACID PO SCH (21:00)
[2019-07-24] MEDS: TOPROL XL PO SCH (21:01)
[2019-07-24] MEDS: AMBIEN PO SCH (21:01)
[2019-07-24] MEDS: LIPITOR PO SCH (21:01)
[2019-07-24] MEDS: CRESTOR PO SCH (21:40)
[2019-07-24] MEDS: XARELTO PO SCH (21:40)
[2019-07-25] MEDS: NORCO-10 PO PRN ×2 (04:49→11:50)
[2019-07-25] MEDS: KLONOPIN PO SCH (09:26)
[2019-07-25] MEDS: LYRICA PO SCH (09:26)
[2019-07-25] MEDS: ASPIRIN PO SCH (09:49)
[2019-07-25] MEDS: PLAVIX PO SCH (09:49)
[2019-07-25] MEDS: COLACE PO SCH (09:49)
[2019-07-25] MEDS: ZOLOFT PO SCH (09:49)
[2019-07-25 12:04] VITALS: BP 138/88
--- NOTE | 2019-07-25 14:33 | DISCHARGE SUMMARY ---
ADMISSION DATE: 07/17/2019 DISCHARGE DATE: ADDENDUM TO DISCHARGE SUMMARY: DISCHARGE MEDS: Are as follows. 1. Aspirin 81 mg p.o. daily. 2. Colace 200 mg oral daily. 3. Ambien 10 mg oral at bedtime. 4. Lipitor 40 mg oral at bedtime. 5. [place] 10/325 one tab oral every 6 hours p.r.n. for pain. 6. Tylenol 650 mg oral every 6 hours p.r.n. for fever. 7. Zoloft 50 mg oral daily. 8. Crestor 20 mg oral at bedtime. 9. Klonopin 1 mg oral 3 times a day. 10. Lyrica 150 mg oral 3 times a day. 11. Xarelto 20 mg oral at bedtime. DISCHARGE INSTRUCTIONS: The patient is stable for discharge to [facility] in [place]. cc: Minda Nam MD
== END 2019-07-25 15:07 | DRG 65 ==
LOC: SUPCPDRO → ED 12:09 → 3N 21:08 → SUATTDRO 21:08
PROVIDERS: ATTEND Internal Medicine